=== PATIENT | female | born 1940 | race Hispanic/Latino ===

== ENCOUNTER 2017-09-14 18:28 | Emergency (ER) | payer OTHER ==
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
[2017-09-14 19:57] VITALS: TEMP 98.7
[2017-09-14 19:58] VITALS: BP 133/74; O2SAT 99
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
== END 2017-09-14 19:53 | disposition home or self-care (01) ==
LOC: ER 18:28
DX: M25.551 Pain in right hip (principal); M25.511 Pain in right shoulder; V49.59XA Passenger injured in collision with other motor vehicles in traffic accident, initial encounter; I10 Essential (primary) hypertension
CPT/HCPCS: 72125; 99284

== ENCOUNTER 2018-07-30 02:27 | Emergency (ER) | payer OTHER ==
[2018-07-30 04:01] LABS: Absolute Lymphocytes (CBC) 1.4 K/uL (0.7-4.9); Absolute Monocytes 0.6 K/uL (0.1-1.3); Absolute Neutrophil 7.3 K/uL (1.8-8.0); Basophils % 0.5 % (0-1.3); Eosinophils % 1.6 % (0-4.4); Hematocrit 37.8 % (36.0-45.0); Lymphocytes % 14.9 % (15.3-44.8); MPV 9.3 fL (7.6-11.3); Monocytes % 6.2 % (3.3-12.3); RBC Red Blood Cell Count 4.54 M/uL (3.86-4.86)
[2018-07-30] MEDS ORDERED: NA CHLORIDE 0.9% 1,000 ML ONE (04:13)
[2018-07-30 04:18] LABS: Bilirubin Direct 0.1 mg/dL (0-0.2); Bilirubin Total 0.3 mg/dL (0.2-1.0); Potassium 4.2 mmol/L (3.5-5.1); Protein, Total 7.4 g/dL (6.4-8.2)
--- NOTE | 2018-07-30 04:46 | EDPHYS ---
Physician Documentation [facility] Name: Nanda Nagy Age: 77 yrs Sex: Female : 1940 Arrival Date: 07/30/2018 Time: 02:30 Bed 14 Private MD: Paul Redmond E ED Physician Sirdhar Maria HPI: 07/30 02:47 This 77 yrs old Female presents to ER via Wheelchair with complaints of Hip mariam Pain. 02:47 The patient or guardian reports decreased range of motion. that occurred at home, at an mariam unknown site, sustained from unknown reason, There is no obvious deformity, The patient is able to ambulate with assistance. The patient is able to bear their full body weight. The complaints affect the right iliac crest and right hip. The complaints affect the left low back and left mid back. Onset: The symptoms/episode began/occurred just prior to arrival, 3 day(s) ago. Modifying factors: The symptoms are alleviated by remaining still, the symptoms are aggravated by any movement. Associated signs and symptoms: Loss of consciousness: the patient experienced no loss of consciousness. Severity of symptoms: At their worst the symptoms were mild, moderate, in the emergency department the symptoms are unchanged. The patient has not experienced similar symptoms in the past. Historical: - Allergies: 02:31 No Known Allergies; jb4 - Home Meds: 02:31 amlodipine/Valsartan/Hydrochlorothiazide [Active]; Meclizine Oral [Active]; Synthroid jb4 Oral [Active]; pravastatin oral oral [Active]; - PMHx: 02:31 High Cholesterol; Hypertension; Hypothyroidism; jb4 - PSHx: 02:31 None; jb4 - Immunization history:: Adult Immunizations up to date. - Social history:: Smoking status: Patient/guardian denies using tobacco, Patient/guardian denies using alcohol. - Ebola Screening: : No symptoms or risks identified at this time. - Family history:: not pertinent. ROS: 02:47 Constitutional: Negative for fever, chills, and weight loss, Eyes: Negative for injury, mariam pain, redness, and discharge, ENT: Negative for injury, pain, and discharge, Neck: Negative for injury, pain, and swelling, Cardiovascular: Negative for chest pain, palpitations, and edema, Respiratory: Negative for shortness of breath, cough, wheezing, and pleuritic chest pain, Abdomen/GI: Negative for abdominal pain, nausea, vomiting, diarrhea, and constipation, : Negative for injury, bleeding, discharge, and swelling, Skin: Negative for injury, rash, and discoloration, Neuro: Negative for headache, weakness, numbness, tingling, and seizure, Psych: Negative for depression, anxiety, suicide ideation, homicidal ideation, and hallucinations, Allergy/Immunology: Negative for hives, rash, and allergies, Endocrine: Negative for neck swelling, polydipsia, polyuria, polyphagia, and marked weight changes, Hematologic/Lymphatic: Negative for swollen nodes, abnormal bleeding, and unusual bruising. 02:47 Back: Positive for decreased range of motion, pain with movement. 02:47 MS/extremity: Positive for decreased range of motion, pain, warmth, of the left lower back. Exam: 02:47 Constitutional: This is a well developed, well nourished patient who is awake, alert, mariam and in no acute distress. Head/Face: Normocephalic, atraumatic. Eyes: Pupils equal round and reactive to light, extra-ocular motions intact. Lids and lashes normal. Conjunctiva and sclera are non-icteric and not injected. Cornea within normal limits. Periorbital areas with no swelling, redness, or edema. ENT: Nares patent. No nasal discharge, no septal abnormalities noted. Tympanic membranes are normal and external auditory canals are clear. Oropharynx with no redness, swelling, or masses, exudates, or evidence of obstruction, uvula midline. Mucous membranes moist. Neck: Trachea midline, no thyromegaly or masses palpated, and no cervical lymphadenopathy. Supple, full range of motion without nuchal rigidity, or vertebral point tenderness. No Meningismus. Chest/axilla: Normal chest wall appearance and motion. Nontender with no deformity. No lesions are appreciated. Cardiovascular: Regular rate and rhythm with a normal S1 and S2. No gallops, murmurs, or rubs. Normal PMI, no JVD. No pulse deficits. Respiratory: Lungs have equal breath sounds bilaterally, clear to auscultation and percussion. No rales, rhonchi or wheezes noted. No increased work of breathing, no retractions or nasal flaring. Abdomen/GI: Soft, non-tender, with normal bowel sounds. No distension or tympany. No guarding or rebound. No evidence of tenderness throughout. Female : Normal external genitalia. Skin: Warm, dry with normal turgor. Normal color with no rashes, no lesions, and no evidence of cellulitis. MS/ Extremity: Pulses equal, no cyanosis. Neurovascular intact. Full, normal range of motion. Neuro: Awake and alert, GCS 15, oriented to person, place, time, and situation. Cranial nerves II-XII grossly intact. Motor strength 5/5 in all extremities. Sensory grossly intact. Cerebellar exam normal. Normal gait. Psych: Awake, alert, with orientation to person, place and time. Behavior, mood, and affect are within normal limits. 02:47 Back: pain, that is mild, that is moderate, ROM is painful, normal spinal alignment noted, CVA tenderness, is absent, that is mild, vertebral tenderness, is not appreciated, muscle spasm, is not present. Vital Signs: 02:31 BP 159 / 77; Pulse 70; Resp 18; Temp 98.3(O); Pulse Ox 97% on R/A; Weight 81.65 kg (R); jb4 Height 5 ft. 0 in. (152.40 cm) (R); Pain 8/10; 04:00 BP 151 / 66; Pulse 64; Resp 16; Pulse Ox 98% on R/A; jb4 05:15 BP 149 / 63; Pulse 61; Resp 16; Pulse Ox 99% on R/A; jb4 02:31 Body Mass Index 35.15 (81.65 kg, 152.40 cm) [facility] MDM: 02:39 Patient medically screened. [facility] 02:51 Data reviewed: vital signs, nurses notes, lab test result(s), EKG, radiologic studies, [facility] CT scan, doppler, MRI, plain films. 07/30 02:47 Order name: Basic Metabolic Panel; Complete Time: 04:43 [facility] 07/30 02:47 Order name: CBC with Diff; Complete Time: 04:43 [facility] 07/30 02:47 Order name: Creatinine for Radiology; Complete Time: 04:43 [facility] 07/30 02:47 Order name: Hepatic Function; Complete Time: 04:43 [facility] 07/30 02:47 Order name: Lipase; Complete Time: 04:43 [facility] 07/30 02:47 Order name: Urine Culture [facility] 07/30 02:47 Order name: Pelvis XRAY [facility] 07/30 02:47 Order name: Hip Right 2 View XRAY [facility] 07/30 02:47 Order name: CT Stone Protocol [facility] 07/30 05:00 Order name: Urine Dipstick--Ancillary (enter results) ar5 07/30 05:01 Order name: Urine Dipstick-Ancillary EDMS 07/30 02:47 Order name: IV Saline Lock; Complete Time: 04:07 [facility] 07/30 02:47 Order name: Labs collected and sent; Complete Time: 04:07 [facility] Administered Medications: 04:06 Not Given (Patient Refused): morphine 2 mg IVP once jb4 04:06 Not Given (Patient Refused): morphine 2 mg IVP once jb4 04:06 Not Given (Physician Discretion): Zofran 4 mg IVP once; over 2 minutes jb4 04:07 Drug: NS 0.9% 500 ml Route: IV; Rate: bolus; Site: right antecubital; jb4 04:30 Follow up: Response: No adverse reaction; IV Status: Completed infusion jb4 04:30 Drug: NS 0.9% 1000 ml Route: IV; Rate: 125 ml/hr; Site: right antecubital; jb4 05:28 Follow up: Response: No adverse reaction; IV Status: Order to discontinue infusion jb4 05:02 Drug: [place] (7.5 mg-325 mg) 1 tabs Route: PO; jb4 05:28 Follow up: Response: No adverse reaction; Pain is decreased jb4 05:02 Drug: Cipro 500 mg Route: PO; jb4 05:29 Follow up: Response: No adverse reaction jb4 05:08 Drug: Zofran 4 mg Route: IVP; Site: right antecubital; jb4 05:29 Follow up: Response: No adverse reaction; Nausea is decreased jb4 05:10 Drug: TORadol 30 mg Route: IVP; Site: right antecubital; jb4 05:28 Follow up: Response: No adverse reaction; Pain is decreased jb4 05:11 Drug: Rocephin - (cefTRIAXone) 1 grams {Note: Given IVP per pharmacy protocol.} Route: jb4 IVPB; Infused Over: 30 mins; Site: right antecubital; 05:14 Follow up: Response: No adverse reaction; IV Status: Completed infusion jb4 Disposition: 07/30/18 04:44 Discharged to Home. Impression: Pain in right hip, Urinary tract infection, site not specified. - Condition is Stable. - Discharge Instructions: Musculoskeletal Pain, Urinary Tract Infection, Adult, Urinary Tract Infection, Adult, [id number], Hip Pain. - Prescriptions for Tylenol- Codeine #3 300-30 mg Oral Tablet - take 2 tablet by ORAL route every 6 hours As needed; 30 tablet. Motrin IB 200 mg Oral Tablet - take 2 tablet by ORAL route every 6 hours As needed as needed with food; 30 tablet. Cipro 250 mg Oral Tablet - take 1 tablet by ORAL route every 12 hours; 14 tablet. - Medication Reconciliation Form, Thank You Letter, Antibiotic Education, Prescription Opioid Use form. - Follow up: Paul Redmond; When: 2 - 3 days; Reason: Recheck today's complaints, Continuance of care, Re-evaluation by your physician. - Problem is new. - Symptoms have improved. Signatures: Dispatcher [employer] EDSridhar Solares MD MD cha Bryson, James, RN RN jb4 Corrections: (The following items were deleted from the chart) 05:03 04:44 07/30/2018 04:44 Discharged to Home. Impression: Pain in right hip. Condition is mariam Stable. Discharge Instructions: Musculoskeletal Pain, Hip Pain. Prescriptions for Tylenol-Codeine #3 300-30 mg Oral Tablet - take 2 tablet by ORAL route every 6 hours As needed; 30 tablet, Motrin IB 200 mg Oral Tablet - take 2 tablet by ORAL route every 6 hours As needed as needed with food; 30 tablet. and Forms are Medication Reconciliation Form, Thank You Letter, Antibiotic Education, Prescription Opioid Use. Follow up: Paul Redmond; When: 2 - 3 days; Reason: Recheck today's complaints, Continuance of care, Re-evaluation by your physician. Problem is new. Symptoms have improved. mariam 05:31 05:03 07/30/2018 04:44 Discharged to Home. Impression: Pain in right hip; Urinary tract jb4 infection, site not specified. Condition is Stable. Discharge Instructions: Musculoskeletal Pain, Hip Pain. Prescriptions for Tylenol-Codeine #3 300-30 mg Oral Tablet - take 2 tablet by ORAL route every 6 hours As needed; 30 tablet, Motrin IB 200 mg Oral Tablet - take 2 tablet by ORAL route every 6 hours As needed as needed with food; 30 tablet. and Forms are Medication Reconciliation Form, Thank You Letter, Antibiotic Education, Prescription Opioid Use. Follow up: Paul Redmond; When: 2 - 3 days; Reason: Recheck today's complaints, Continuance of care, Re-evaluation by your physician. Problem is new. Symptoms have improved. mariam
--- NOTE | 2018-07-30 04:46 | ER ---
Nurse's Notes [facility] Name: Nanda Nagy Age: 77 yrs Sex: Female : 1940 Arrival Date: 07/30/2018 Time: 02:30 Bed 14 Private MD: Paul Redmond E Diagnosis: Pain in right hip;Urinary tract infection, site not specified Presentation: 07/30 02:31 Presenting complaint: Patient states: I have been having right hip pain for a few days, jb4 I came in tonight because I can't take it any more. Transition of care: patient was not received from another setting of care. Onset of symptoms was July 26, 2018. Risk Assessment: Do you want to hurt yourself or someone else? Patient reports no desire to harm self or others. Initial Sepsis Screen: Does the patient meet any 2 criteria? No. Patient's initial sepsis screen is negative. Does the patient have a suspected source of infection? No. Patient's initial sepsis screen is negative. Care prior to arrival: None. 02:31 Method Of Arrival: Wheelchair jb4 02:31 Acuity: JUDITH 4 jb4 Triage Assessment: 02:31 General: Appears in no apparent distress. uncomfortable, Behavior is calm, cooperative, jb4 appropriate for age. Pain: Complains of pain in right hip Pain radiates to right leg Pain currently is 8 out of 10 on a pain scale. Quality of pain is described as crampy. EENT: No signs and/or symptoms were reported regarding the EENT system. Neuro: Level of Consciousness is awake, alert, obeys commands, Oriented to person, place, time, situation. Cardiovascular: Patient's skin is warm and dry. Respiratory: Airway is patent Respiratory effort is even, unlabored, Respiratory pattern is regular, symmetrical. GI: No signs and/or symptoms were reported involving the gastrointestinal system. : No signs and/or symptoms were reported regarding the genitourinary system. Derm: Skin is intact, Skin is pink, warm \T\ dry. Musculoskeletal: Circulation, motion, and sensation intact. Range of motion: intact in right hip. Historical: - Allergies: 02: No Known Allergies; jb4 - Home Meds: 02:31 amlodipine/Valsartan/Hydrochlorothiazide [Active]; Meclizine Oral [Active]; Synthroid jb4 Oral [Active]; pravastatin oral oral [Active]; - PMHx: 02:31 High Cholesterol; Hypertension; Hypothyroidism; jb4 - PSHx: 02:31 None; jb4 - Immunization history:: Adult Immunizations up to date. - Social history:: Smoking status: Patient/guardian denies using tobacco, Patient/guardian denies using alcohol. - Ebola Screening: : No symptoms or risks identified at this time. - Family history:: not pertinent. Screenin:31 Abuse screen: Denies threats or abuse. Nutritional screening: No deficits noted. jb4 Tuberculosis screening: No symptoms or risk factors identified. Fall Risk None identified. Assessment: 02:31 General: see triage assessment. jb4 03:30 Reassessment: Patient appears in no apparent distress at this time. Patient and/or jb4 family updated on plan of care and expected duration. Pain level reassessed. Patient is alert, oriented x 3, equal unlabored respirations, skin warm/dry/pink. 04:30 Reassessment: Patient appears in no apparent distress at this time. Patient and/or jb4 family updated on plan of care and expected duration. Pain level reassessed. Patient is alert, oriented x 3, equal unlabored respirations, skin warm/dry/pink. 05:30 Reassessment: Patient appears in no apparent distress at this time. Patient and/or jb4 family updated on plan of care and expected duration. Pain level reassessed. Patient is alert, oriented x 3, equal unlabored respirations, skin warm/dry/pink. Vital Signs: 02:31 BP 159 / 77; Pulse 70; Resp 18; Temp 98.3(O); Pulse Ox 97% on R/A; Weight 81.65 kg (R); jb4 Height 5 ft. 0 in. (152.40 cm) (R); Pain 8/10; 04:00 BP 151 / 66; Pulse 64; Resp 16; Pulse Ox 98% on R/A; jb4 05:15 BP 149 / 63; Pulse 61; Resp 16; Pulse Ox 99% on R/A; jb4 02:31 Body Mass Index 35.15 (81.65 kg, 152.40 cm) jb4 ED Course: 02:30 Patient arrived in ED. es 02:30 Paul Redmond MD is Private Physician. es 02:31 Bautista Alfaro, RN is Primary Nurse. jb4 02:31 Arm band placed on left wrist. jb4 02:31 Patient has correct armband on for positive identification. Bed in low position. Call jb4 light in reach. Side rails up X 1. Pulse ox on. NIBP on. 02:39 Sridhar Maria MD is Attending Physician. mariam 02:42 Triage completed. jb4 03:25 X-ray completed. Patient tolerated procedure well. kw 03:25 Pelvis XRAY In Process Unspecified. EDMS 03:25 Hip Right 2 View XRAY In Process Unspecified. EDMS 03:30 Initial lab(s) drawn, by me, sent to lab. Inserted saline lock: 20 gauge in right jb4 antecubital area, using aseptic technique. Blood collected. 03:46 CT Stone Protocol In Process Unspecified. EDMS 04:44 Paul Redmond MD is Referral Physician. mariam 05:15 No provider procedures requiring assistance completed. IV discontinued, intact, jb4 bleeding controlled. Administered Medications: 04:06 Not Given (Patient Refused): morphine 2 mg IVP once jb4 04:06 Not Given (Patient Refused): morphine 2 mg IVP once jb4 04:06 Not Given (Physician Discretion): Zofran 4 mg IVP once; over 2 minutes jb4 04:07 Drug: NS 0.9% 500 ml Route: IV; Rate: bolus; Site: right antecubital; jb4 04:30 Follow up: Response: No adverse reaction; IV Status: Completed infusion jb4 04:30 Drug: NS 0.9% 1000 ml Route: IV; Rate: 125 ml/hr; Site: right antecubital; jb4 05:28 Follow up: Response: No adverse reaction; IV Status: Order to discontinue infusion jb4 05:02 Drug: [place] (7.5 mg-325 mg) 1 tabs Route: PO; jb4 05:28 Follow up: Response: No adverse reaction; Pain is decreased jb4 05:02 Drug: Cipro 500 mg Route: PO; jb4 05:29 Follow up: Response: No adverse reaction jb4 05:08 Drug: Zofran 4 mg Route: IVP; Site: right antecubital; jb4 05:29 Follow up: Response: No adverse reaction; Nausea is decreased jb4 05:10 Drug: TORadol 30 mg Route: IVP; Site: right antecubital; jb4 05:28 Follow up: Response: No adverse reaction; Pain is decreased jb4 05:11 Drug: Rocephin - (cefTRIAXone) 1 grams {Note: Given IVP per pharmacy protocol.} Route: jb4 IVPB; Infused Over: 30 mins; Site: right antecubital; 05:14 Follow up: Response: No adverse reaction; IV Status: Completed infusion jb4 Outcome: 04:44 Discharge ordered by MD. becerra 05:30 Discharged to home via wheelchair, with family. jb4 05:30 Condition: stable 05:30 Discharge instructions given to patient, family, Instructed on discharge instructions, follow up and referral plans. medication usage, Demonstrated understanding of instructions, follow-up care, medications, Prescriptions given X 3. 05:31 Patient left the ED. jb4 Signatures: Dispatcher [employer] Sridhar Interiano MD MD cha Salyer, Raven Odell James, RN RN jb4
[2018-07-30] MEDS ORDERED: KETOROLAC 30 MG/ML INJ ONE (05:02)
[2018-07-30] MEDS ORDERED: HYDROCODONE/APAP 7.5/325 MG TAB ONE (05:02)
[2018-07-30] MEDS ORDERED: ONDANSETRON 4 MG/2 ML VIAL ONE (05:02)
[2018-07-30 05:03] LABS: Urine Blood TRACE (NEG); Urine Glucose NEGATIVE (NEG); Urine Protein NEGATIVE (NEG); Urine Specific Gravity 1.015 (1.005-1.030); Urine pH 6.5 (5.0-7.0)
[2018-07-30] MEDS ORDERED: CEFTRIAXONE/SWI 1gm 1 GM/10 ML SYR ONE (05:15)
[2018-07-30] MEDS ORDERED: CIPROFLOXACIN HCL 500 MG TAB ONE (05:15)
[2018-07-30 05:45] VITALS: TEMP 98.3
[2018-07-30 05:47] VITALS: BP 149/63; O2SAT 99
--- NOTE | 2018-07-30 08:29 | RAD REPORT ---
EXAM DESCRIPTION: RAD - Pelvis - 07/30/2018 3:31 am CLINICAL HISTORY: Right-sided pelvic and hip pain COMPARISON: October 2012 pelvis TECHNIQUE: AP imaging of the pelvis was obtained. FINDINGS: Lower lumbar degenerative changes are present. These have progressed from 2013 but are not fully imaged on this examination. SI joint degenerative changes minimal and stable. No fracture or acute findings of the bony pelvis. Mild bilateral hip joint degenerative changes are present showing low progression over time. No joint effusion or periarticular abnormality. No AVN or focal femoral head abnormality seen. IMPRESSION: Minimal degenerative change along the superior aspect of each acetabulum showing minimal progression from 2013. No AVN or focal femoral head abnormality. No acute hip joint or proximal right femur finding. Progressive lower lumbar degenerative change not fully imaged on this study.
--- NOTE | 2018-07-30 08:51 | RAD REPORT ---
EXAM DESCRIPTION: RAD - Hip Right 2 View - 07/30/2018 3:29 am CLINICAL HISTORY: Right hip pain COMPARISON: August 2017 FINDINGS: AP and frog-leg views of the right hip were obtained. There is no fracture or dislocation . No AVN or focal femoral head abnormality. No significant degenerative change, joint effusion or pe riarticular abnormality. IMPRESSION: Negative right hip examination for acute findings. No significant change from August 2017 .
--- NOTE | 2018-07-31 16:32 | RAD REPORT ---
EXAM DESCRIPTION: CT - Stone Protocol - 07/30/2018 4:13 am CLINICAL HISTORY: 77-year old female with flank pain. COMPARISON: None. TECHNIQUE: The CT scan was performed using dose optimization techniques as appropriate to a performe d exam including one or more of the following: Automated exposure control, adjustment of the mA and/o r kV according to patient size (this includes techniques or standardized protocols for targeted exams where dose is matched to indication/reason for exam) and use of iterative reconstruction technique. FINDINGS: Lung bases: The lung bases are grossly clear. Liver: The liver is normal in size and configuration. There is a sharply circumscribed low density ma ss arising from the lateral segment of the left hepatic lobe measuring approximately 1.7 cm most cons istent with a simple hepatic cyst. Liver attenuation is within normal limits. Spleen: The spleen is normal in size, configuration and attenuation. No focal splenic abnormalities a re appreciated on this unenhanced scan. Gallbladder and bile duct: The gallbladder is well distended and unremarkable. There is no biliary du ctal dilation. Pancreas: The pancreas is grossly normal in size and configuration. Adrenal Glands: The adrenal glands ar normal in size and configuration. Kidneys: The kidneys are normal in size and configuration. There is no evidence of hydronephrosis. Th ere is nonobstructing punctate bilateral nephrolithiasis. There are a couple of bilateral renal hypod ensities likely representing renal cysts. There is mild stranding of the perinephric fat bilaterally which is nonspecific but can be seen with chronic medical renal disease. Stomach: The stomach is grossly normal. There is a small hiatal hernia. Bowel: The bowel gas pattern is non specific and non obstructive. There is occasional colonic diverti culosis. Appendix: The appendix is normal. Free air: There is no evidence of free air. Free fluid: There is no evidence of free fluid. Vasculature: The aorta is normal in caliber and contour. The inferior vena cava is grossly unremarkab le. There is atherosclerotic calcifications along the abdominal aorta. Lymphadenopathy: No pathologic lymphadenopathy is identified. Bladder: The bladder is incompletely distended. Reproductive: The uterus is retroverted and is otherwise unremarkable. Bones: There are degenerative changes along the visualized thoracolumbar spine. There is grade 1 ante rolisthesis of L4 relative to L5. Bilateral pars defects at L4 are suspected. Soft tissues: No focal soft tissue abnormalities are identified. There is a small fat-containing vent ral umbilical hernia. IMPRESSION: 1. Bilateral nonobstructing nephrolithiasis. 2. Bilateral renal hypodensities likely representing cysts. Evaluation is limited without IV contrast . 3. Small left hepatic lobe cyst. 4. Small hiatal hernia. 5. Retroverted uterus. 6. Grade 1 anterolisthesis of L4 relative to L5. Electronically signed by Holli Muniz DO 07/30/2018 4:01 AM [employer] Due to temporary technical issues with the PACS/Fluency reporting system, reports are being signed by the in house radiologist as a courtesy to ensure prompt reporting. The interpreting radiologist is f ully responsible for the content of the report.
== END 2018-07-30 05:31 | disposition home or self-care (01) ==
LOC: ER 02:27
DX: N39.0 Urinary tract infection, site not specified (principal); I10 Essential (primary) hypertension; E03.9 Hypothyroidism, unspecified; E78.00 Pure hypercholesterolemia, unspecified
CPT/HCPCS: 36415; 72170; 73502; 74176; 76377; 80048; 80076; 81003; 83690; 85025; 87086; 87088; 96361; 96374; 96375; 99284; J0696; J2405; J7030

== ENCOUNTER 2019-02-03 22:02 | Emergency (ER) | payer OTHER ==
[2019-02-03] MEDS ORDERED: CEFTRIAXONE 1000 MG/VIAL ONE (23:46)
[2019-02-03] MEDS ORDERED: WATER FOR INJ,STERILE 10 ML ONE (23:47)
--- NOTE | 2019-02-03 23:59 | EDPHYS ---
Physician Documentation [facility] Name: Nanda Nagy Age: 78 yrs Sex: Female : 1940 Arrival Date: 02/03/2019 Time: 22:05 Bed 5 Private MD: ED Physician Richard Pfeiffer HPI: 02/03 23:18 This 78 yrs old Female presents to ER via Wheelchair with complaints of Right pm1 Flank Pain. 23:19 The patient complains of pain in the right low back. Location: right groin area. Onset: pm1 The symptoms/episode began/occurred today. Modifying factors: The symptoms are alleviated by nothing. the symptoms are aggravated by nothing. Associated signs and symptoms: Pertinent negatives: diarrhea, dysuria, fever, nausea, vomiting. Severity of pain: in the emergency department the pain is actually worse. The patient has experienced similar episodes in the past, a few times, today's symptoms are similar, to previous UTI. The patient has been recently seen by a physician: [facility] and diagnosed with unspecified abdominal pain. Labs and CT of abdomen pelvis performed. Patient discharged home with tramadol. Tramadol appears to help her pain. stopped here for reevaluation of patient's pain because it returned on the way home. Patient reports that she usually has flank pain with urinary tract infections. Historical: - Allergies: 22:29 No Known Allergies; ea - Home Meds: 22:29 Synthroid Oral [Active]; pravastatin Oral [Active]; Meclizine Oral [Active]; ea amlodipine/Valsartan/Hydrochlorothiazide [Active]; - PMHx: 22:29 Hypothyroidism; hyperthyroidism; Hypertension; High Cholesterol; ea - PSHx: 22:29 None; ea - Immunization history:: Adult Immunizations up to date. - Social history:: Smoking status: Patient/guardian denies using tobacco. - Ebola Screening: : No symptoms or risks identified at this time. ROS: 23:19 Constitutional: Negative for fever, chills, and weight loss, Eyes: Negative for injury, pm1 pain, redness, and discharge, ENT: Negative for injury, pain, and discharge, Neck: Negative for injury, pain, and swelling, Cardiovascular: Negative for chest pain, palpitations, and edema, Respiratory: Negative for shortness of breath, cough, wheezing, and pleuritic chest pain, Abdomen/GI: Negative for abdominal pain, nausea, vomiting, diarrhea, and constipation. 23:19 : Negative for injury, bleeding, discharge, and swelling, MS/Extremity: Negative for injury and deformity, Skin: Negative for injury, rash, and discoloration, Neuro: Negative for headache, weakness, numbness, tingling, and seizure. 23:19 Back: Positive for flank pain, on the right. Exam: 23:19 Constitutional: This is a well developed, well nourished patient who is awake, alert, pm1 and in no acute distress. Head/Face: Normocephalic, atraumatic. Eyes: Pupils equal round and reactive to light, extra-ocular motions intact. Lids and lashes normal. Conjunctiva and sclera are non-icteric and not injected. Cornea within normal limits. Periorbital areas with no swelling, redness, or edema. ENT: Nares patent. No nasal discharge, no septal abnormalities noted. Tympanic membranes are normal and external auditory canals are clear. Oropharynx with no redness, swelling, or masses, exudates, or evidence of obstruction, uvula midline. Mucous membranes moist. Neck: Trachea midline, no thyromegaly or masses palpated, and no cervical lymphadenopathy. Supple, full range of motion without nuchal rigidity, or vertebral point tenderness. No Meningismus. Chest/axilla: Normal chest wall appearance and motion. Nontender with no deformity. No lesions are appreciated. Cardiovascular: Regular rate and rhythm with a normal S1 and S2. No gallops, murmurs, or rubs. Normal PMI, no JVD. No pulse deficits. Respiratory: Lungs have equal breath sounds bilaterally, clear to auscultation and percussion. No rales, rhonchi or wheezes noted. No increased work of breathing, no retractions or nasal flaring. Abdomen/GI: Soft, non-tender, with normal bowel sounds. No distension or tympany. No guarding or rebound. No evidence of tenderness throughout. 23:19 Skin: Warm, dry with normal turgor. Normal color with no rashes, no lesions, and no evidence of cellulitis. MS/ Extremity: Pulses equal, no cyanosis. Neurovascular intact. Full, normal range of motion. 23:19 Back: pain, that is mild, of the right low back, normal spinal alignment noted, vertebral tenderness, is not appreciated. 23:19 Neuro: Orientation: is normal, Motor: is normal, moves all fours, strength is 5/5 in all extremities, Sensation: is normal, no obvious gross deficits. Vital Signs: 22:21 BP 144 / 70; Pulse 71; Resp 18; Temp 97.6(O); Pulse Ox 96% on R/A; Pain 8/10; oe 23:29 BP 133 / 66; Pulse 62; Resp 14; Pulse Ox 95% on R/A; ak1 02/04 00:05 BP 131 / 62; Pulse 59; Resp 14; Temp 98; Pulse Ox 95% on R/A; ak1 MDM: 02/03 22:45 Patient medically screened. pm1 23:01 Physician consultation: ER MD Lopez was called at 23:01, was contacted at 23:01, pm1 regarding patient's condition, Patient presents to ER here without any CT results. CT result: No acute findings. 23:01 ED course: Patient with recent ER visit at [facility]. Patient pm1 with no change in presentation of symptoms from [facility]. No apparent need for repeat CT and labs. Based on recommendation from Dr. Lopez, will give the patient Rocephin and discharge home with antibiotics for possible UTI. 23:19 Data reviewed: vital signs. Data interpreted: Pulse oximetry: on room air is 96 %. pm1 Interpretation: normal. 23:57 Counseling: I had a detailed discussion with the patient and/or guardian regarding: the pm1 historical points, exam findings, and any diagnostic results supporting the discharge/admit diagnosis, the need for outpatient follow up, to return to the emergency department if symptoms worsen or persist or if there are any questions or concerns that arise at home. 02/03 23:58 Order name: Urine Microscopic Only pm1 02/03 23:58 Order name: Urine Dipstick-Ancillary (obtain specimen); Complete Time: 00:35 pm1 Administered Medications: 02/04 00:02 Drug: Rocephin (cefTRIAXone) 1 grams Route: IM; Site: right gluteus; rr5 00:28 Follow up: Response: Medication administered at discharge. rr5 Disposition: 10:50 Co-signature as Attending Physician, Richard Pfeiffer MD I agree with the assessment and tw4 plan of care. Disposition: 02/03/19 23:58 Discharged to Home. Impression: Urinary tract infection, site not specified. - Condition is Stable. - Discharge Instructions: Urinary Tract Infection, Adult. - Prescriptions for Bactrim DS 800- 160 mg Oral Tablet - take 1 tablet by ORAL route every 12 hours for 10 days; 20 tablet. - Medication Reconciliation Form, Thank You Letter, Antibiotic Education, Prescription Opioid Use form. - Follow up: Emergency Department; When: As needed; Reason: Worsening of condition. Follow up: Private Physician; When: 2 - 3 days; Reason: Recheck today's complaints, Continuance of care, Re-evaluation by your physician. - Problem is new. - Symptoms have improved. Signatures: Dispatcher [employer] EDMS Theodore Cervantes, MEDICAL TECHNICIAN MEDICAL TECHNICIAN pm1 Shana Lanza, RN Richard Bowens ea, MD MD tw4 Ketan Andrade RN RN rr5 Corrections: (The following items were deleted from the chart) 00:29 02/03 23:58 02/03/2019 23:58 Discharged to Home. Impression: Urinary tract infection, rr5 site not specified. Condition is Stable. Forms are Medication Reconciliation Form, Thank You Letter, Antibiotic Education, Prescription Opioid Use. Follow up: Emergency Department; When: As needed; Reason: Worsening of condition. Follow up: Private Physician; When: 2 - 3 days; Reason: Recheck today's complaints, Continuance of care, Re-evaluation by your physician. Problem is new. Symptoms have improved. pm1
--- NOTE | 2019-02-03 23:59 | ER ---
Nurse's Notes [facility] Name: Nanda Nagy Age: 78 yrs Sex: Female : 1940 Arrival Date: 02/03/2019 Time: 22:05 Bed 5 Private MD: Diagnosis: Urinary tract infection, site not specified Presentation: 02/03 22:25 Presenting complaint: Patient states: Pt reports she woke up suddenly with pain to ea right side of hip that travels up her lower back around 6 PM. Denies fall. Transition of care: patient was not received from another setting of care. Onset of symptoms was February 03, 2019. Risk Assessment: Do you want to hurt yourself or someone else? Patient reports no desire to harm self or others. Initial Sepsis Screen: Does the patient meet any 2 criteria? No. Patient's initial sepsis screen is negative. Does the patient have a suspected source of infection? No. Patient's initial sepsis screen is negative. Care prior to arrival: None. 22:25 Method Of Arrival: Wheelchair ea 22:25 Acuity: JUDITH 4 ea Triage Assessment: 22:29 General: Appears uncomfortable, Behavior is calm, cooperative, appropriate for age. ea Pain: Complains of pain in right lower back Pain radiates to right mid back and right low back. Neuro: Level of Consciousness is awake, alert, obeys commands, Oriented to person, place, time, situation. Cardiovascular: Patient's skin is warm and dry. Respiratory: Airway is patent Respiratory effort is even, unlabored, Respiratory pattern is regular, symmetrical. Derm: Skin is pink, warm \T\ dry. Historical: - Allergies: 22:29 No Known Allergies; ea - Home Meds: 22:29 Synthroid Oral [Active]; pravastatin Oral [Active]; Meclizine Oral [Active]; ea amlodipine/Valsartan/Hydrochlorothiazide [Active]; - PMHx: 22:29 Hypothyroidism; hyperthyroidism; Hypertension; High Cholesterol; ea - PSHx: 22:29 None; ea - Immunization history:: Adult Immunizations up to date. - Social history:: Smoking status: Patient/guardian denies using tobacco. - Ebola Screening: : No symptoms or risks identified at this time. Screenin: Abuse screen: Denies threats or abuse. Denies injuries from another. Nutritional rr5 screening: No deficits noted. Tuberculosis screening: No symptoms or risk factors identified. Fall Risk None identified. Total Clements Fall Scale indicates No Risk (0-24 pts). 22:28 Abuse screen: Denies threats or abuse. Nutritional screening: No deficits noted. ea Tuberculosis screening: No symptoms or risk factors identified. Fall Risk None identified. Assessment: 22:28 General: Appears in no apparent distress. uncomfortable, Behavior is calm, cooperative, rr5 appropriate for age. Pain: Complains of pain in right flank Pain does not radiate. Pain currently is 8 out of 10 on a pain scale. Quality of pain is described as aching, Pain began gradually, Is intermittent. Neuro: Level of Consciousness is awake, alert, obeys commands, Oriented to person, place, time, situation, Appropriate for age. Cardiovascular: Capillary refill < 3 seconds Patient's skin is warm and dry. Respiratory: Airway is patent Respiratory effort is even, unlabored, Respiratory pattern is regular, symmetrical. GI: No signs and/or symptoms were reported involving the gastrointestinal system. : Reports pain in right flank(s), Denies burning with urination, pain with urination. EENT: No signs and/or symptoms were reported regarding the EENT system. Derm: Skin is intact, Skin temperature is warm. Musculoskeletal: Circulation, motion, and sensation intact. Capillary refill < 3 seconds. 23:10 Reassessment: awaiting for [facility] to fax the radiology and laboratory rr5 records of the patient. patient signed the consent to access her medical records in [facility]. 02/04 00:06 Reassessment: pt asked to provide a urian sample, pt requested a bedside commode. pt ak1 assisted to bedside commode to try and provide sample. 00:28 Reassessment: Patient appears in no apparent distress at this time. Patient is alert, rr5 oriented x 3, equal unlabored respirations, skin warm/dry/pink. discharge instruction given and explained without complaints made. Patient states feeling better. Patient states symptoms have improved. Vital Signs: 02/03 22:21 BP 144 / 70; Pulse 71; Resp 18; Temp 97.6(O); Pulse Ox 96% on R/A; Pain 8/10; oe 23:29 BP 133 / 66; Pulse 62; Resp 14; Pulse Ox 95% on R/A; ak1 02/04 00:05 BP 131 / 62; Pulse 59; Resp 14; Temp 98; Pulse Ox 95% on R/A; ak1 ED Course: 02/03 22:05 Patient arrived in ED. ds1 22:19 Ketan Andrade, BLAYNE is Primary Nurse. rr5 22:22 Theodore Cervantes NP is PHCP. pm1 22:22 Richard Pfeiffer MD is Attending Physician. pm1 22:28 Triage completed. ea 22:28 Patient has correct armband on for positive identification. Bed in low position. Call rr5 light in reach. Side rails up X2. Pulse ox on. NIBP on. 22:29 Arm band placed on right wrist. Patient placed in an exam room, on a stretcher, on ea pulse oximetry. 23:46 No provider procedures requiring assistance completed. ak1 02/04 00:05 Patient did not have IV access during this emergency room visit. ak1 Administered Medications: 00:02 Drug: Rocephin (cefTRIAXone) 1 grams Route: IM; Site: right gluteus; rr5 00:28 Follow up: Response: Medication administered at discharge. rr5 Outcome: 02/03 23:58 Discharge ordered by . pm1 02/04 00:28 Discharged to home via wheelchair, with family. rr5 Condition: stable Discharge instructions given to patient, family, Instructed on discharge instructions, follow up and referral plans. medication usage, Demonstrated understanding of instructions, follow-up care, medications, Prescriptions given X 1. 00:29 Patient left the ED. rr5 Signatures: Emma Hensley ds1 Carolee Faustin RN RN ak1 Theodore Cervantes, ERIKA CATERING SERVER pm1 Danis Saleh Elena, RN RN Ketan Andrade, RN RN rr5
[2019-02-04 00:37] LABS: Urine Bacteria 20-50 /HPF (<20); Urine Culture Reflex Order REFLEXED; Urine RBC <5 /HPF (NONE SEEN)
[2019-02-04 01:49] VITALS: O2SAT 95
[2019-02-04 01:51] VITALS: BP 131/62; TEMP 98
== END 2019-02-04 00:29 | disposition home or self-care (01) ==
LOC: ER 22:02
DX: N39.0 Urinary tract infection, site not specified (principal); I10 Essential (primary) hypertension; E78.00 Pure hypercholesterolemia, unspecified; E07.9 Disorder of thyroid, unspecified
CPT/HCPCS: 81015; 87077; 87086; 87088; 87186; 96372; 99283

== ENCOUNTER 2022-10-21 13:33 | Emergency (ER) | payer OTHER ==
--- NOTE | 2022-10-21 14:04 | RAD REPORT ---
EXAM DESCRIPTION: CT - CTHCSPWOC - 10/21/2022 1:51 pm CLINICAL HISTORY: Trauma, head and neck injury. PAIN COMPARISON: C Spine Wo Con dated 09/14/2017 TECHNIQUE: Axial 5 mm thick images of the head were obtained. Axial 2 mm thick images of the cervical spine were obtained with sagittal and coronal reconstruction images generated and reviewed. All CT scans are performed using dose optimization technique as appropriate and may include automated exposure control or mA/KV adjustment according to patient size. FINDINGS: CT HEAD WITHOUT CONTRAST: No acute hemorrhage, hydrocephalus or extra-axial collection is identified.No areas of brain edema or midline shift. The paranasal sinuses and mastoids are clear.The calvarium is intact. CT CERVICAL SPINE WITHOUT CONTRAST: No fracture or subluxation.No prevertebral soft tissues swelling is identified. Multilevel degenerati ve changes are present in the spine. Varying degrees of neural foraminal narrowing noted. This is adv anced at C3-4, C4-5, and C5-6. IMPRESSION: No acute intracranial or cervical spine findings.
--- NOTE | 2022-10-21 14:05 | RAD REPORT ---
EXAM DESCRIPTION: CT - CTFB CLINICAL HISTORY: FACIAL PAIN COMPARISON: Head C Spine Mpr Wo Con dated 10/21/2022 TECHNIQUE: Axial 2 mm thick images of the face were obtained with sagittal and coronal reconstructio n images. All CT scans are performed using dose optimization technique as appropriate and may include automated exposure control or mA/KV adjustment according to patient size. FINDINGS: No acute facial bone fracture is seen.The mandible is intact. The globes and orbital contents are grossly unremarkable.The paranasal sinuses and mastoids are clear . IMPRESSION: Negative for facial bone fracture.
--- NOTE | 2022-10-21 14:38 | ER ---
Nurse's Notes [facility] Name: Nanda Nagy Age: 82 yrs Sex: Female : 1940 Arrival Date: 10/21/2022 Time: 13:33 Bed 2 Private MD: Diagnosis: Contusion of eyelid and periocular area Presentation: 10/21 13:36 Chief complaint: EMS states: Cardboard sign fell from top shelf and hit her in the hb face. Small superficial laceration noted to bridge of nose, right periorbital swelling and bruising noted. Negative LOC. Coronavirus screen: At this time, the client does not indicate any symptoms associated with coronavirus-19. Ebola Screen: No symptoms or risks identified at this time. Initial Sepsis Screen: Does the patient meet any 2 criteria? No. Patient's initial sepsis screen is negative. Does the patient have a suspected source of infection? No. Patient's initial sepsis screen is negative. Risk Assessment: Do you want to hurt yourself or someone else? Patient reports no desire to harm self or others. Onset of symptoms was October 21, 2022. 13:36 Method Of Arrival: EMS: [facility] 13:36 Acuity: JUDITH 3 hb Historical: - Allergies: 13:38 No Known Allergies; hb - Home Meds: 13:38 amlodipine/Valsartan/Hydrochlorothiazide [Active]; Synthroid Oral [Active]; Meclizine hb Oral [Active]; pravastatin Oral [Active]; - PMHx: 13:38 High Cholesterol; Hypertension; hyperthyroidism; Hypothyroidism; hb - Immunization history:: Adult Immunizations up to date. - Social history:: Smoking status: Patient denies any tobacco usage or history of. Screenin:30 [facility] ED Fall Risk Assessment (Adult) Score/Fall Risk Level 0 - 2 = Low Risk hb Oriented to surroundings, Maintained a safe environment, Educated pt \T\ family on fall prevention, incl call for assistance when getting out of bed. 13:30 Abuse screen: Denies threats or abuse. Denies injuries from another. Nutritional hb screening: No deficits noted. Tuberculosis screening: No symptoms or risk factors identified. Assessment: 13:40 General: Appears in no apparent distress. Behavior is cooperative, anxious. Pain: Pain hb currently is 6 out of 10 on a pain scale. Neuro: Level of Consciousness is awake, alert, obeys commands, Oriented to person, place, time, situation. Cardiovascular: Patient's skin is warm and dry. Respiratory: Respiratory effort is even, unlabored, Respiratory pattern is regular, symmetrical. GI: No signs and/or symptoms were reported involving the gastrointestinal system. : No signs and/or symptoms were reported regarding the genitourinary system. EENT: right periorbital swelling and bruising, small superficial laceration noted to bridge of nose. Derm: Skin is pink, warm \T\ dry. Musculoskeletal: No signs and/or symptoms reported regarding the musculoskeletal system. 14:30 Reassessment: Patient appears in no apparent distress at this time. No changes from hb previously documented assessment. Patient and/or family updated on plan of care and expected duration. Pain level reassessed. Vital Signs: 13:36 BP 198 / 83; Pulse 63; Resp 16; Temp 97.9; Pulse Ox 98% on R/A; Weight 86.18 kg; Height hb 5 ft. 3 in. ; Pain 6/10; 14:56 BP 156 / 86; Pulse 62; Resp 15; Pulse Ox 99% on R/A; hb 13:36 Body Mass Index 33.66 (86.18 kg, 160.02 cm) hb 13:36 Pain Scale: Adult hb ED Course: 13:30 Patient has correct armband on for positive identification. hb 13:34 Patient arrived in ED. iw 13:36 Bert Luis MD is Attending Physician. bs3 13:38 Triage completed. hb 13:44 Arm band placed on. hb 13:53 CT Head C Spine In Process Unspecified. EDMS 13:53 CT Facial Bones W/O Con In Process Unspecified. EDMS 14:57 No provider procedures requiring assistance completed. Patient did not have IV access hb during this emergency room visit. Administered Medications: No medications were administered Medication: 14:56 VIS not applicable for this client. hb Outcome: 14:37 Discharge ordered by . bs3 14:57 Discharged to home via wheelchair, with significant other. hb 14:57 Condition: stable 14:57 Discharge instructions given to patient, significant other, Instructed on discharge instructions, follow up and referral plans. Demonstrated understanding of instructions, follow-up care. 14:57 Patient left the ED. hb Signatures: Dispatcher [employer] EDMS Kalpana Quiñones RN RN Sapna Hamilton, RN RN Bert Chaudhry MD MD bs3
--- NOTE | 2022-10-21 14:38 | EDPHYS ---
Physician Documentation [facility] Name: Nanda Nagy Age: 82 yrs Sex: Female : 1940 Arrival Date: 10/21/2022 Time: 13:33 Bed 2 Private MD: ED Physician Bert Luis HPI: 10/21 13:37 This 82 yrs old Female presents to ER via Unassigned with complaints of Facial bs3 Injury. 13:37 The patient or guardian reports abrasion, injury. Context of injury: The problem was bs3 sustained hit with a cardboard board. Onset: The symptoms/episode began/occurred suddenly, just prior to arrival. Associated signs and symptoms: The patient has no apparent associated signs or symptoms. 82-year-old female history of hypertension, injections in her eye presents with an abrasion to her nose and bruising to her right orbit she was shopping and was hit by a cardboard object just prior to arrival denies LOC denies any other injuries complains of mild pain given eyes no blurry vision nothing else bothering her. Historical: - Allergies: 13:38 No Known Allergies; hb - Home Meds: 13:38 amlodipine/Valsartan/Hydrochlorothiazide [Active]; Synthroid Oral [Active]; Meclizine hb Oral [Active]; pravastatin Oral [Active]; - PMHx: 13:38 High Cholesterol; Hypertension; hyperthyroidism; Hypothyroidism; hb - Immunization history:: Adult Immunizations up to date. - Social history:: Smoking status: Patient denies any tobacco usage or history of. ROS: 13:40 Constitutional: Negative for fever, chills bs3 13:40 All other systems are negative. Exam: 13:40 Constitutional: This is a well developed, well nourished patient who is awake, alert, bs3 and in no acute distress. Head/Face: right periorbital ecchymosis, and mild tenderness Eyes: Pupils equal round and reactive to light, extra-ocular motions intact. Lids and lashes normal. slight conjunctival injections, no pain with EOM ENT: mmm, no posterior phyarngeal erythema, superficial abrasion at bridge of nose Neck: mild tenderness in posterior c spine midline also paraspinal tenderness Chest/axilla: Normal chest wall appearance and motion. Nontender with no deformity. No lesions are appreciated. Cardiovascular: Regular rate and rhythm with a normal S1 and S2. symmetric pulses in upper extremities Respiratory: Lungs have equal breath sounds bilaterally, clear to auscultation, no respiratory distress MS/ Extremity: Pulses equal, no cyanosis. Neurovascular intact. Full, normal range of motion. Neuro: Awake and alert, GCS 15, oriented to person, place, time, and situation. Cranial nerves II-XII grossly intact. Motor strength 5/5 in all extremities. Sensory grossly intact. Psych: Awake, alert, with orientation to person, place and time. Behavior, mood, and affect are within normal limits. Vital Signs: 13:36 BP 198 / 83; Pulse 63; Resp 16; Temp 97.9; Pulse Ox 98% on R/A; Weight 86.18 kg; Height hb 5 ft. 3 in. ; Pain 6/10; 14:56 BP 156 / 86; Pulse 62; Resp 15; Pulse Ox 99% on R/A; hb 13:36 Body Mass Index 33.66 (86.18 kg, 160.02 cm) hb 13:36 Pain Scale: Adult hb MDM: 13:36 Patient medically screened. bs3 14:34 Differential diagnosis: Contusion of Hematoma on Laceration of Intracranial bleed- bs3 Concussion. Data reviewed: vital signs, nurses notes. ED course: No hemorrhage as interpreted by myself on ct brain . ED course: officail read neg for acute pathology, lac too small to close, will dc home. 10/21 13:40 Order name: CT Head C Spine; Complete Time: 14:34 bs3 10/21 13:40 Order name: CT Facial Bones W/O Con; Complete Time: 14:34 bs3 Administered Medications: No medications were administered Disposition Summary: 10/21/22 14:37 Discharge Ordered Location: Home bs3 Problem: new bs3 Symptoms: have improved bs3 Condition: Stable bs3 Diagnosis - Contusion of eyelid and periocular area bs3 Followup: bs3 - With: Private Physician - When: As needed - Reason: Re-evaluation by your physician Discharge Instructions: - Discharge Summary Sheet bs3 - Facial or Scalp Contusion, [id number] bs3 Forms: - Medication Reconciliation Form bs3 - Thank You Letter bs3 - Antibiotic Education bs3 - Prescription Opioid Use bs3 Signatures: Dispatcher [employer] EDTX Sapna Baumann RN RN Bert Luis MD MD bs3 Corrections: (The following items were deleted from the chart) 13:42 13:40 Constitutional: This is a well developed, well nourished patient who is awake, bs3 alert, and in no acute distress. Head/Face: right periorbital ecchymosis, and mild tenderness Eyes: Pupils equal round and reactive to light, extra-ocular motions intact. Lids and lashes normal. ENT: mmm, no posterior phyarngeal erythema Neck: mild tenderness in posterior c spine midline also paraspinal tenderness Chest/axilla: Normal chest wall appearance and motion. Nontender with no deformity. No lesions are appreciated. Cardiovascular: Regular rate and rhythm with a normal S1 and S2. symmetric pulses in upper extremities Respiratory: Lungs have equal breath sounds bilaterally, clear to auscultation, no respiratory distress MS/ Extremity: Pulses equal, no cyanosis. Neurovascular intact. Full, normal range of motion. Neuro: Awake and alert, GCS 15, oriented to person, place, time, and situation. Cranial nerves II-XII grossly intact. Motor strength 5/5 in all extremities. Sensory grossly intact. Psych: Awake, alert, with orientation to person, place and time. Behavior, mood, and affect are within normal limits. bs3
[2022-10-21] MEDS ORDERED: IBUPROFEN 200 MG TAB PO ONE (14:54)
[2022-10-21 15:01] VITALS: TEMP 97.9
[2022-10-21 15:02] VITALS: BP 156/86; O2SAT 99
== END 2022-10-21 14:57 | disposition home or self-care (01) ==
LOC: ER 13:33
DX: S00.11XA Contusion of right eyelid and periocular area, initial encounter (principal); I10 Essential (primary) hypertension; E78.00 Pure hypercholesterolemia, unspecified; E03.9 Hypothyroidism, unspecified
CPT/HCPCS: 70450; 70486; 72125; 76377; 99283

== ENCOUNTER 2022-12-14 19:47 | Emergency (ER) | payer OTHER ==
--- OUTSIDE RECORDS SUMMARY | 2022-12-14 19:50 | XMS REPORT | Continuity of Care Document ---
:1940 Author Organization [facility] t Address [address] [facility] [place] [place] [address] [place] [id number] Care Team Providers Name Role Phone Unavailable Unavailable Unavailable Problems This patient has no known problems. Allergies, Adverse Reactions, Alerts This patient has no known allergies or adverse reactions. Medications This patient has no known medications. Procedures This patient has no known procedures. Encounters Start End Encounter Admission Attending Care Care Encounter Source Date/Time Date/Time Type Type Clinicians Facility Department ID 2022-11-23 2022-11-23 Outpatient [facility] [id number] [place] 14:17:28 14:17:28 [id number] Chauncey 2022-11-09 2022-11-09 Outpatient [facility] [id number] [place] 17:03:43 17:03:43 0524 Chauncey Results Test Description Test Time Test Comments Results Result Comments Source VITAMIN D, 25 OH 2022-11-24 10:13:08 Test Item Value Reference Range Interpretation Comme nts VITAMIN D, 25 OH (test 21 NG/ML SEE BELOW L E FFECTIVE 06/27/2022, PLEASE NOTE code = 4958) NEW METHODOLOGY IS ELECTROCHEMILUM INESCENCE BINDING ASSAY. NOTE: 25-HYDROX YVITAMIN D ASSAY INCLUDES 25-HYDROXYVITAM IN D2 AND D3. INTERPRETIVE RA NGES PEDIATRIC (<17 YEARS) . . . . . . . . . . . NG/ML 20-100ADULT: IN SUFFICIENT . . . . . . . . . . . . . . N G/ML <20 SUBOPTIMAL . . . . . . . . . . . . . . . NG/ML 20-29 OPTIMAL . . . . . . . . . . . . . . . . . NG/ML 30-100 UNLESS OTHERWISE INDICATED, ALL TESTING PERFORMED AT [facility] [employer] [address] [place] [id number] [employer] SUPERVISOR: DYLAN FRANKLIN M.D. CLIA NUMBER [id number] [place]. [id number] TSH, THIRD [id number] 10:12:44 Test Item Value Reference Range Interpretation Comments TSH, THIRD GENERATION (test code 0.800 UIU/ML 0.400-4.100 = 2821) TROPONIN [id number] 09:41:44 Test Item Value Reference Range Interpretation Comments TROPONIN T (test 8 NG/L <14 INTERPRETI VE code = 4017) INFORMATION:MET HODOLOGY IS 5TH GENERATION HIGH SENSITIVITY CARDIAC TROPONI N.REFERENCE INTERVALS GIVEN ABOVE ARE BELOW THE 99TH PERCENTILE OFAPPARENTLY HE ALTHY ADULT PATIENTS. ELEVA TIONS OF CARDIAC TROPONI N TMAY BE SEEN IN PATIENTS WIT H MYOCARDIAL INJURY, SEEN IN STABLE ORUNSTABLE PASCUAL NA, HEART FAILURE, MYOCAR DITIS, PULMONARY EMBOLISM,PERICA RDITIS, ARRHYTHMIAS, CA RDIAC CONTUSIONS, AND CARDIAC TRANSPLANTSELEV ATIONS ARE ALSO NOTABLE IN FLEX ENTS WITH RHABDOMYOLYSIS ANDPOLYMYOSITIS . FOR MORE INFORMATION, SE E CLIENT ANNOUNCEMENT AT [email or web address] COMPREHENSIVE METABOLIC [id number] 07:00:37 Test Item Value Reference Range Interpretation Comments GLUCOSE (test code = 88 MG/DL 70-99 2216) BUN (test code = 27 MG/DL 8-23 H 2207) CREATININE (test 1.05 MG/DL 0.60-1.30 code = 2214) eGFR (2020 CKD-EPI) 53 ML/MIN/1.73 >60 L The N KF-ASN (test code = 30998) Taskforc e recommends use of Cystatin C to confirm eGFR inadults at ris k for CKD. [facility] offers eGFR with Cystatin C-Creatinineusi ng the 2020 CKD-EP I eGFR_creat-cyst at equation (order code 3057) toincreas e the accuracy of estimated GFR. For more informatio n, contactyour acc ount executive or se e announcement [email or web address] CALC BUN/CREAT (test 26 RATIO 6-28 code = 2235) SODIUM (test code = 143 MEQ/L [phone]) POTASSIUM (test code 4.5 MEQ/L 3.5-5.4 = 2227) CHLORIDE (test code 104 MEQ/L 95-107 = 2214) CARBON DIOXIDE (test 29 MEQ/L 19-31 code = 220) CALCIUM (test code = 9.5 MG/DL 8.5-10.5 2208) PROTEIN, TOTAL (test 6.7 G/DL 6.1-8.3 code = 222) ALBUMIN (test code = 4.6 G/DL 3.5-5.2 2200) CALC GLOBULIN (test 2.1 G/DL 1.9-3.7 code = 224) CALC A/G RATIO (test 2.2 RATIO 1.0-2.6 code = 223) BILIRUBIN, TOTAL <0.2 MG/DL See_Comment [Automated message] (test code = 220) The syste m which generated this result transmit [place] reference range : <=1.2. The refe rence range was not u sed to interpret th is result as normal/abnormal . ALKALINE PHOSPHATASE 80 U/L 40-142 (test code = 2203) AST (test code = 14 U/L 9-40 2217) ALT (test code = 12 U/L 5-40 2218) LIPID [id number] 07:00:37 Test Item Value Reference Range Interpretation Comments CHOLESTEROL (test 180 MG/DL <200 code = 2210) TRIGLYCERIDES (test 237 MG/DL <150 H code = 2232) HDL CHOLESTEROL (test 52 MG/DL >39 code = 2220) CALC LDL CHOL (test 95 MG/DL <100 NOTE: C ALCULATED LDL code = 2237) IS BASED ON MIRELLA-BE METHOD WHICHINCLUDES ADJUSTABLE TRIGLYCERIDE:VL DL CHOLESTEROL RAT IO.THIS FACTOR VARIES B Y MEASURED TRIGLY CERIDE AND NON-HDLCHOL ESTEROL CONCENTRATIONS WITH INCREASED CALCU LATED LDL SEENIN HIGH ER TRIGLYCERIDE OR LOWER NON-HDL SPECIME NS. FOR MOREINFORMATION , SEE CLIENT ANNOUNCE MENT AT [email or web address] [email or web address] LDL/HDL 1.83 RATIO <3.22 (test code = 223) CBC W/AUTO DIFF WITH [id number] 03:12:45 Test Item Value Reference Range Interpretation Comments WBC (test code = 7.1 K/UL 3.5-11.0 1001) RBC (test code = 4.48 M/UL 3.80-5.40 1002) HEMOGLOBIN (test code 12.4 G/DL 11.5-15.5 = 1003) HEMATOCRIT (test code 37.3 % 34.0-45.0 = 1004) MCV (test code = 83.3 fL 80.0-99.0 1005) MCH (test code = 27.7 PG 25.0-33.0 1006) MCHC (test code = 33.2 G/DL 31.0-36.0 1007) RDW (test code = 13.9 % 11.5-15.0 1038) NEUTROPHILS (test 67.4 % code = 1008) LYMPHOCYTES (test 21.8 % code = 1010) MONOCYTES (test code 6.9 % = 1011) EOSINOPHILS (test 3.0 % code = 1012) BASOPHILS (test code 0.8 % = 1013) IMMATURE GRANULOCYTES 0.1 % (test code = 1036) NUCLEATED RBCS (test 0.0 /100 WBC'S See_Comment [Aut omated code = 1065) message] The sy stem which generated this result transmitted reference range : 0.0. The refere nce range was not u sed to interpret th is result as normal/abnormal . PLATELET COUNT (test 225 K/UL 130-400 code = 1015) ABSOLUTE NEUTROPHILS 4.79 K/UL 1.50-7.50 (test code = 1066) ABSOLUTE LYMPHOCYTES 1.55 K/UL 1.00-4.00 (test code = 1067) ABSOLUTE MONOCYTES 0.49 K/UL 0.20-1.00 (test code = 1068) ABSOLUTE EOSINOPHILS 0.21 K/UL 0.00-0.50 (test code = 1040) ABSOLUTE BASOPHILS 0.06 K/UL 0.00-0.20 (test code = 1069) ABS IMMATURE 0.01 K/UL 0.00-0.10 GRANULOCYTES (test code = 1020) ABS NUCLEATED RBCS 0.00 K/UL 0.00-0.11 (test code = 88090)
--- NOTE | 2022-12-14 20:46 | RAD REPORT ---
EXAM DESCRIPTION: RAD - Wrist Right 3 View - 12/14/2022 8:18 pm CLINICAL HISTORY: PAIN Pain COMPARISON: No comparisons FINDINGS: Mild radiocarpal joint arthritic changes. No acute fracture or dislocation evident. No agg ressive bone lesion.
[2022-12-14] MEDS ORDERED: TRAMADOL HCL 50 MG TAB ONE (21:06)
[2022-12-14] MEDS ORDERED: ACETAMINOPHEN 325 MG TABLET ONE (21:07)
[2022-12-14] MEDS ORDERED: IBUPROFEN 400 MG TAB ONE (21:07)
--- NOTE | 2022-12-14 21:25 | EDPHYS ---
Physician Documentation [facility] Name: Nanda Nagy Age: 82 yrs Sex: Female : 1940 Arrival Date: 12/14/2022 Time: 19:47 Bed 9 Private MD: ED Physician Tiburcio August HPI: 12/14 20:15 This 82 yrs old Female presents to ER via Ambulatory with complaints of Wrist cp Injury. 20:15 The patient or guardian reports pain, tenderness. Context: resulted from a fall. Onset: cp The symptoms/episode began/occurred several months ago and became worse after catching falling object while at store several weeks ago. Modifying factors: the symptoms are aggravated by movement, palpation. Associated signs and symptoms: The patient has no apparent associated signs or symptoms. Historical: - Allergies: 20:01 No Known Allergies; as6 - PMHx: 20:01 High Cholesterol; Hypertension; hyperthyroidism; Hypothyroidism; as6 - PSHx: 20:01 None; as6 - Immunization history:: Client reports receiving the 2nd dose of the Covid vaccine, moderna. - Social history:: Smoking status: Patient denies any tobacco usage or history of. ROS: 20:20 Constitutional: Negative for body aches, chills, fever, poor PO intake. cp 20:20 Neck: Negative for pain with movement, pain at rest, stiffness. cp 20:20 Cardiovascular: Negative for chest pain. 20:20 Respiratory: Negative for cough, shortness of breath, wheezing. 20:20 Abdomen/GI: Negative for abdominal pain, vomiting, diarrhea, constipation. 20:20 Back: Negative for pain at rest, pain with movement. 20:20 MS/extremity: Positive for pain, tenderness, of the right wrist. 20:20 Skin: Negative for cellulitis, rash. 20:20 Neuro: Negative for dizziness, headache, numbness, weakness. 20:20 All other systems are negative. Exam: 20:25 Constitutional: The patient appears in no acute distress, alert, awake, non-toxic, well cp developed, well nourished. 20:25 Hand exam: Exam is positive for pain, tenderness, radial side of wrist over styloid and cp proximal to snuff box area . ROM: limited passive range of motion due to pain, in the right wrist, Perfusion: the extremity is normally perfused throughout, sensation intact. 20:25 Skin: cellulitis, is not appreciated, no rash present. 20:25 Head/Face: Normocephalic, atraumatic. 20:25 Neck: ROM/movement: is normal, is supple, without pain, no range of motions limitations. 20:25 Cardiovascular: Pulses: Pulses are 2+ in right radial artery. 20:25 Respiratory: the patient does not display signs of respiratory distress, Respirations: normal, no use of accessory muscles, no retractions, labored breathing, is not present. Vital Signs: 19:58 BP 170 / 66; Pulse 80; Resp 18 S; Temp 97.9(TE); Pulse Ox 97% on R/A; Weight 81.65 kg as6 (R); Height 5 ft. 0 in. (R); Pain 7/10; 21:30 BP 155 / 74; Pulse 74; Resp 18; Pulse Ox 100% on R/A; mb9 19:58 Body Mass Index 35.15 (81.65 kg, 152.4 cm) as6 19:58 Pain Scale: Adult as6 Procedures: 21:33 Splinting: Splint applied to right wrist using wrist splint, applied by nurse. Examined cp by me, post splint application: neurovascular intact, Patient tolerated well. MDM: 20:07 Patient medically screened. cp 20:45 Differential diagnosis: dislocation, closed fracture, contusion, tendonitis. cp 21:25 Data reviewed: vital signs, nurses notes, radiologic studies, plain films. cp 21:25 I considered the following discharge prescriptions or medication management in the emergency department Medications were administered in the Emergency Department. See MAR. Counseling: I had a detailed discussion with the patient and/or guardian regarding: the historical points, exam findings, and any diagnostic results supporting the discharge/admit diagnosis, radiology results, the need for outpatient follow up, a hand specialist, to return to the emergency department if symptoms worsen or persist or if there are any questions or concerns that arise at home. Response to treatment: the patient's symptoms have mildly improved after treatment, and as a result, I will discharge patient. 12/14 20:03 Order name: XRAY Wrist RIGHT 3 view; Complete Time: 21:07 as6 12/14 21:07 Interpretation: Report reviewed. 12/14 21:07 Order name: Splint - Wrist; Complete Time: 21:12 cp Administered Medications: 21:01 Drug: Ibuprofen PO 800 mg Route: PO; mb9 21:12 Follow up: Response: No adverse reaction mb9 21:01 Drug: Acetaminophen PO 650 mg Route: PO; mb9 21:12 Follow up: Response: No adverse reaction mb9 21:01 Drug: traMADol PO 50 mg Route: PO; mb9 21:09 Follow up: Response: No adverse reaction mb9 Disposition Summary: 12/14/22 21:25 Discharge Ordered Location: Home cp Problem: new cp Symptoms: have improved cp Condition: Stable cp Diagnosis - Pain in right wrist cp Followup: cp - With: Clint Mauro MD - When: 1 week - Reason: Recheck today's complaints Discharge Instructions: - Discharge Summary Sheet cp - Wrist Pain, Adult cp Forms: - Medication Reconciliation Form cp - Thank You Letter cp - Antibiotic Education cp - Prescription Opioid Use cp - MedHost_Portal_[email or web address].htm cp Prescriptions: - Mobic 7.5 mg Oral Tablet - take 1 tablet by ORAL route once daily take with food; 20 tablet; Refills: 0, cp Product Selection Permitted Signatures: Dispatcher [employer] EDSridhar Tavera PA PA cp Slawson, Ashby RN RN as6 Kassandra Ahn RN RN mb9
--- NOTE | 2022-12-14 21:25 | ER ---
Nurse's Notes [facility] Name: Nanda Nagy Age: 82 yrs Sex: Female : 1940 Arrival Date: 12/14/2022 Time: 19:47 Bed 9 Private MD: Diagnosis: Pain in right wrist Presentation: 12/14 19:58 Chief complaint: Patient states: pt had a fall several months ago and caught herself as6 with her out reached hand and has had pain in her right wrist ever since. Coronavirus screen: At this time, the client does not indicate any symptoms associated with coronavirus-19. Ebola Screen: No symptoms or risks identified at this time. Initial Sepsis Screen: Does the patient meet any 2 criteria? No. Patient's initial sepsis screen is negative. Does the patient have a suspected source of infection? No. Patient's initial sepsis screen is negative. Risk Assessment: Do you want to hurt yourself or someone else? Patient reports no desire to harm self or others. Onset of symptoms is unknown. 19:58 Method Of Arrival: Ambulatory as6 19:58 Acuity: JUDITH 4 as6 Triage Assessment: 20:01 General: Appears in no apparent distress. Behavior is calm, cooperative. Pain: as6 Complains of pain in right wrist. Musculoskeletal: Reports pain in right wrist. Historical: - Allergies: 20:01 No Known Allergies; as6 - PMHx: 20:01 High Cholesterol; Hypertension; hyperthyroidism; Hypothyroidism; as6 - PSHx: 20:01 None; as6 - Immunization history:: Client reports receiving the 2nd dose of the Covid vaccine, moderna. - Social history:: Smoking status: Patient denies any tobacco usage or history of. Screenin:28 [facility] ED Fall Risk Assessment (Adult) History of falling in the last 3 months, mb9 including since admission No falls in past 3 months (0 pts) Confusion or Disorientation No (0 pts) Intoxicated or Sedated No (0 pts) Impaired Gait No (0 pts) Mobility Assist Device Used No (0 pt) Altered Elimination No (0 pt) Score/Fall Risk Level 0 - 2 = Low Risk Oriented to surroundings, Maintained a safe environment, Educated pt \T\ family on fall prevention, incl call for assistance when getting out of bed. Abuse screen: Denies threats or abuse. Nutritional screening: No deficits noted. Tuberculosis screening: No symptoms or risk factors identified. Assessment: 20:28 Reassessment: No changes from previously documented assessment. Patient and/or family mb9 updated on plan of care and expected duration. Pain level reassessed. Patient is alert, oriented x 3, equal unlabored respirations, skin warm/dry/pink. Vital Signs: 19:58 BP 170 / 66; Pulse 80; Resp 18 S; Temp 97.9(TE); Pulse Ox 97% on R/A; Weight 81.65 kg as6 (R); Height 5 ft. 0 in. (R); Pain 7/10; 21:30 BP 155 / 74; Pulse 74; Resp 18; Pulse Ox 100% on R/A; mb9 19:58 Body Mass Index 35.15 (81.65 kg, 152.4 cm) as6 19:58 Pain Scale: Adult as6 ED Course: 19:53 Patient arrived in ED. ja2 20:01 Triage completed. as6 20:02 Arm band placed on. as6 20:04 Sridhar Wei PA is PHCP. cp 20:04 Tiburcio August MD is Attending Physician. cp 20:20 XRAY Wrist RIGHT 3 view In Process Unspecified. EDMS 20:28 Kassandra Ahn, BLAYNE is Primary Nurse. mb9 20:28 Bed in low position. Call light in reach. Side rails up X 1. Client placed on mb9 continuous cardiac and pulse oximetry monitoring. NIBP monitoring applied. 20:29 No provider procedures requiring assistance completed. mb9 21:24 Clint Mauro MD is Referral Physician. cp 21:30 Patient did not have IV access during this emergency room visit. mb9 Administered Medications: 21:01 Drug: Ibuprofen PO 800 mg Route: PO; mb9 21:12 Follow up: Response: No adverse reaction mb9 21:01 Drug: Acetaminophen PO 650 mg Route: PO; mb9 21:12 Follow up: Response: No adverse reaction mb9 21:01 Drug: traMADol PO 50 mg Route: PO; mb9 21:09 Follow up: Response: No adverse reaction mb9 Medication: 20:28 VIS not applicable for this client. mb9 Outcome: 21:25 Discharge ordered by . cp 21:30 Discharged to home ambulatory. mb9 21:30 Condition: stable 21:30 Discharge instructions given to patient, Instructed on discharge instructions, follow up and referral plans. Demonstrated understanding of instructions, follow-up care, medications, Prescriptions given X 1. 21:30 Patient left the ED. mb9 Signatures: Dispatcher [employer] EDMS Sridhar Wei PA PA cp Alexander, Jessica ja2 Slawson, Ashby, RN RN as6 Kassandra Ahn RN RN mb9
[2022-12-14 22:07] VITALS: TEMP 97.9
[2022-12-14 22:09] VITALS: BP 155/74; O2SAT 100
== END 2022-12-14 21:30 | disposition home or self-care (01) ==
LOC: ER 19:47
DX: M25.531 Pain in right wrist (principal)
CPT/HCPCS: 99283

== ENCOUNTER 2024-07-21 15:39 | Emergency (ER) | payer OTHER ==
--- OUTSIDE RECORDS SUMMARY | 2024-07-21 15:43 | XMS REPORT | Continuity of Care Document ---
Author Name Unknown Address [address] [facility] [address] [place] [id number] [facility] Address [address] [facility] 1 [address] [place] [address] Care Team Providers Care Drafter Landscape Name Role Phone Angeline Boswell Primary Care Physician [phone] Medications Ordered Medication Name Filled Medication Name Start Date Stop Date Current Medication? Ordering Clinician Indication Dosage Frequency Signature (SIG) Comments Components Source lidocaine 5 % topical cream 2023-06 0-03 00:00: 00 Yes 1% Cody Grossman simvastatin 40 mg tablet 2023-06 0-03 00:00: 00 Yes 1mg Cody Grossman amlodipine 5 mg tablet 2023-06 0-03 00:00: 00 Yes 1mg Cody Grossman valsartan 160 mg tablet 2023-06 0-03 00:00: 00 Yes 1mg Cody Grossman levothyroxi ne 100 mcg tablet 2023-06 0-03 00:00: 00 Yes 1mcg Cody Grossman gabapentin 300 mg capsule 2023-06 0-03 00:00: 00 Yes 1mg Cody Grossman mupirocin 2 % topical ointment -19 00:00: 00 Yes 1% Cody Grossman amlodipine 5 mg tablet 4-15 00:00: 00 Yes 1mg Cody Grossman simvastatin 40 mg tablet 4-15 00:00: 00 Yes 1mg Cody Grossman valsartan 160 mg tablet -15 00:00: 00 Yes 1mg Cody Grossman levothyroxi ne 100 mcg tablet 4-15 00:00: 00 Yes 1mcg Cody Grossman gabapentin 300 mg capsule 4-15 00:00: 00 Yes 1mg Cody Grossman TAKE 1 TABLET DAILY. 09-20 00:00: 00 Yes 100 Cody Grossman VALSARTAN 160 MG 09-20 00:00: 00 Yes Cody Grossman LEVOTHYROXI N 75MCG 2022-06 00:00: 00 Yes Cody Grossman TAKE 1 TABLET DAILY. 2022-06 00:00: 00 10-23 00:00 :00 No 100 Cody Grossman SIMVASTATIN 40MG 2022-06 0 00:00: 00 Yes Cody Grossman AMLODIPINE BESYLATE 5 MG 03-01 00:00: 00 Yes 5 Cody Grossman AMLODIPINE 5MG 02-18 00:00: 00 Yes Cody Grossman TAKE 1 TABLET DAILY. 02-18 00:00: 00 10-23 00:00 :00 No 40 Cody Grossman TAKE 1 TABLET DAILY. 01-04 00:00: 00 10-23 00:00 :00 No 75 Cody Grossman MELOXICAM 7.5MG 12-16 00:00: 00 Yes Cody Grossman TAKE 1 CAPSULE AT BEDTIME. 12-16 00:00: 00 10-23 00:00 :00 No 300 Cody Grossman INHALE 1 TO 2 PUFFS EVERY 6 HOURS NEEDED. 12-16 00:00: 00 10-23 00:00 :00 No [id number] Cody Grossman TAKE ONE TABLET TWICE A DAY NEEDED 12-16 00:00: 00 10-23 00:00 :00 No 5 Cody Grossman TAKE 1 TABLET BY MOUTH ONCE DAILY TAKE WITH FOOD 12-14 00:00: 00 Yes Cody Grossman TAKE 1 TABLET DAILY 11-23 00:00: 00 Yes Cody Grossman TAKE 1 TABLET EVERY MORNING. 11-23 00:00: 00 10-23 00:00 :00 No 5 Cody Grossman TAKE 1 TABLET DAILY. 11-23 00:00: 00 10-23 00:00 :00 No 40 Cody Grossman VALSARTAN 160MG 24 00:00: 00 Yes Cody Grossman TAKE 1 TABLET EVERY MORNING. 0 5 00:00: 00 10-23 00:00 :00 No 5 Cody Grossman SIMVASTATIN 40MG 2021-06 230 00:00: 00 Yes [id number] Cody Grossman ONDANSETRON 4MG ODT 2021-06 00:00: 00 Yes 4000 Cody Grossman MONTELUKAST 10MG 2021-06 00:00: 00 Yes [id number] Cody Grossman TAKE 3 TABLETS BY MOUTH TWICE A DAY DIRECTED ON THE PACKAGE 2021-06 00:00: 00 Yes Cody Grossman PULMICRT FLX 180MCG INH 2021-06 00:00: 00 Yes [id number] Cody Grossman FAMOTIDINE 20MG 2021-06 00:00: 00 Yes Cody Grossman AZITHROMYCI N 250MG 2021-06 00:00: 00 Yes [id number] Cody Grossman TAKE 1 TABLET BY MOUTH TWICE A DAY NEEDED FOR ANXIETY 02-16 00:00: 00 Yes Cody Grossman VALSARTAN 160MG 0 12-15 00:00: 00 Yes [id number] Cody Grossman AMLODIPINE 5MG 0 6 00:00: 00 Yes 5000 Cody Grossman Vital Signs Vital Name Observation Time Observation Value Comments S ource BP Systolic 2024-03-21 09:49:00 144 mm[Hg] Regan hen Josue Grossman BP Diastolic 2024-03-21 09:49:00 78 mm[Hg] Mynor phen Josue Grossman Weight Measured 2024-03-21 09:49:00 186.20 pounds Cody Grossman Height Measured 2024-03-21 09:49:00 67.00 inches Cody Grossman Body Temperature 2024-03-21 09:49:00 Cody Grossman Heart Rate 2024-03-21 09:49:00 67.00 /min Sharlene en Josue Grossman Respiratory Rate 2024-03-21 09:49:00 Cody Grossman BP Systolic 2024-01-05 18:23:00 Step hen Josue Grossman BP Diastolic 2024-01-05 18:23:00 Mynor phen F Chauncey Weight Measured 2024-01-05 18:23:00 Cody F Chauncey Height Measured 2024-01-05 18:23:00 Cody F Chauncey Body Temperature 2024-01-05 18:23:00 Cody F Chauncey Heart Rate 2024-01-05 18:23:00 Sharlene en F Chauncey Respiratory Rate 2024-01-05 18:23:00 Cody F Chauncey BP Systolic 2023-12-20 10:01:00 139 mm[Hg] Step hen F Chauncey BP Diastolic 2023-12-20 10:01:00 80 mm[Hg] Mynor phen F Chauncey Weight Measured 2023-12-20 10:01:00 188.40 pounds Cody F Chauncey Height Measured 2023-12-20 10:01:00 67.00 inches Cody F Chauncey Body Temperature 2023-12-20 10:01:00 98.20 degrees Cody F Chauncey Heart Rate 2023-12-20 10:01:00 70.00 /min Sharlene en F Chauncey Respiratory Rate 2023-12-20 10:01:00 17.00 /min Cody F Chauncey BP Systolic 2023-10-02 09:36:00 142 mm[Hg] Step hen F Chauncey BP Diastolic 2023-10-02 09:36:00 83 mm[Hg] Mynor phen F Chauncey Weight Measured 2023-10-02 09:36:00 186.00 pounds Cody F Chauncey Height Measured 2023-10-02 09:36:00 67.00 inches Cody F Chauncey Body Temperature 2023-10-02 09:36:00 98.10 degrees Cody F Chauncey Heart Rate 2023-10-02 09:36:00 75.00 /min Sharlene en F Chauncey Respiratory Rate 2023-10-02 09:36:00 19.00 /min Cody F Chauncey BP Systolic 2023-04-20 11:37:00 142 mm[Hg] Step hen F Chauncey BP Diastolic 2023-04-20 11:37:00 80 mm[Hg] Mynor phen F Chauncey Weight Measured 2023-04-20 11:37:00 184.60 pounds Cody F Chauncey Height Measured 2023-04-20 11:37:00 67.00 inches Cody F Chauncey Body Temperature 2023-04-20 11:37:00 98.40 degrees Cody F Chauncey Heart Rate 2023-04-20 11:37:00 87.00 /min Sharlene en F Chauncey Respiratory Rate 2023-04-20 11:37:00 17.00 /min Cody F Chauncey BP Systolic 2023-03-01 11:42:00 155 mm[Hg] Step hen F Chauncey BP Diastolic 2023-03-01 11:42:00 84 mm[Hg] Mynor phen F Chauncey Weight Measured 2023-03-01 11:42:00 185.60 pounds Cody F Chauncey Height Measured 2023-03-01 11:42:00 67.00 inches Cody F Chauncey Body Temperature 2023-03-01 11:42:00 98.30 degrees Cody F Chauncey Heart Rate 2023-03-01 11:42:00 67.00 /min Sharlene en F Chauncey Respiratory Rate 2023-03-01 11:42:00 16.00 /min Cody F Chauncey BP Systolic 2022-12-16 16:34:00 142 mm[Hg] Step hen F Chauncey BP Diastolic 2022-12-16 16:34:00 81 mm[Hg] Mynor phen F Chauncey Weight Measured 2022-12-16 16:34:00 190.60 pounds Cody F Chauncey Height Measured 2022-12-16 16:34:00 67.00 inches Cody F Chauncey Body Temperature 2022-12-16 16:34:00 97.80 degrees Cody F Chauncey Heart Rate 2022-12-16 16:34:00 78.00 /min Sharlene en F Chauncey Respiratory Rate 2022-12-16 16:34:00 Cody F Chauncey BP Systolic 2022-11-23 13:31:00 144 mm[Hg] Step hen F Chauncey BP Diastolic 2022-11-23 13:31:00 63 mm[Hg] Mynor phen F Chauncey Weight Measured 2022-11-23 13:31:00 188.40 pounds Cody F Chauncey Height Measured 2022-11-23 13:31:00 67.00 inches Cody F Chauncey Body Temperature 2022-11-23 13:31:00 97.80 degrees Cody F Chauncey Heart Rate 2022-11-23 13:31:00 85.00 /min Sharlene en F Chauncey Respiratory Rate 2022-11-23 13:31:00 18.00 /min Cody F Chauncey BP Systolic 2022-11-23 13:17:00 144 mm[Hg] Step hen F Chauncey BP Diastolic 2022-11-23 13:17:00 63 mm[Hg] Mynor phen F Chauncey Weight Measured 2022-11-23 13:17:00 188.40 pounds Cody Grossman Height Measured 2022-11-23 13:17:00 67.00 inches Cody Josue Grossman Body Temperature 2022-11-23 13:17:00 97.80 degrees Cody Josue Grossman Heart Rate 2022-11-23 13:17:00 85.00 /min Sharlene en F Chauncey Respiratory Rate 2022-11-23 13:17:00 18.00 /min Cody Josue Grossman BP Systolic 2022-11-09 17:34:00 179 mm[Hg] Step hen F Chauncey BP Diastolic 2022-11-09 17:34:00 83 mm[Hg] Mynor phen F Chauncey Weight Measured 2022-11-09 17:34:00 187.40 pounds Cody Grossman Height Measured 2022-11-09 17:34:00 67.00 inches Cody Grossman Body Temperature 2022-11-09 17:34:00 98.30 degrees Cody Josue Grossman Heart Rate 2022-11-09 17:34:00 77.00 /min Sharlene en F Chauncey Respiratory Rate 2022-11-09 17:34:00 18.00 /min Cody Grossman Encounters Start Date/Time End Date/Time Encounter Type Admission Type Attending [facility] Care Department Encounter ID Source 2024-03-21 09:44:23 2024-03-21 09:44:23 Outpatient [facility] [id number] Cody Grossman 2024-03-21 00:00:00 2024-03-21 00:00:00 Outpatient Visit [facility] [id number] Cody Grossman 2024-01-05 18:22:29 2024-01-05 18:22:29 Outpatient [facility] [id number] Cody Grossman 2024-01-05 00:00:00 2024-01-05 00:00:00 Outpatient Visit [facility] [id number] Cody Grossman 2023-12-20 09:48:24 2023-12-20 09:48:24 Outpatient [facility] [id number] Cody Grossman 2023-12-20 00:00:00 2023-12-20 00:00:00 Outpatient Visit [facility] [id number] Cody Grossman 2023-10-23 13:30:55 2023-10-23 13:30:55 Outpatient [facility] [id number] Cody Grossman 2023-10-10 12:58:45 2023-10-10 12:58:45 Outpatient [facility] [id number] Cody Grossman 2023-10-02 10:23:44 2023-10-02 10:23:44 Outpatient [facility] [id number] Cody Grossman 2023-04-20 14:11:05 2023-04-20 14:11:05 Outpatient [facility] [id number] Cody Salas Chauncey 2023-04-17 15:53:33 2023-04-17 15:53:33 Outpatient [facility] [id number] Cody Grossman 2023-03-01 11:35:10 2023-03-01 11:35:10 Outpatient [facility] [id number] Cody Salas Chauncey 2023-01-03 13:45:23 2023-01-03 13:45:23 Outpatient [facility] [id number] Cody Salas Chauncey 2022-12-23 15:10:20 2022-12-23 15:10:20 Outpatient [facility] [id number] Cody Salas Chauncey 2022-12-16 16:31:54 2022-12-16 16:31:54 Outpatient [facility] [id number] Cody Grossman 2022-11-23 14:17:28 2022-11-23 14:17:28 Outpatient [facility] 07 Cody Salas Chauncey 2022-11-09 17:03:43 2022-11-09 17:03:43 Outpatient [facility] [id number] Cody Grossman Results Test Description Test Time Test Comments Results Result Co mments Source TSH, THIRD [id number] 06:01:38* Test Item Value Reference Range Interpretation Comme nts TSH, THIRD GENERATION (test code = 2821) 4.120 UIU/ML 0.400-4.100 H COMPREHENSIVE METABOLIC [id number] 05:52:00* Test Item Value Reference Range Interpretation Comme nts GLUCOSE (test code = 2217) 153 MG/DL 70-99 H BUN (test code = 2208) 24 MG/DL 8-23 H CREATININE (test code = 2214) 1.08 MG/DL 0.60-1.30 eGFR (2020 CKD-EPI) (test code = 33643) 51 ML/MIN/1.73 >60 L The NKF-ASN Taskforce recommends use of Cystatin C to confirm eGFR inadults at risk for CKD. [facility] offers eGFR with Cystatin C-Creatinineusing the 2020 CKD-EPI eGFR_creat-cystat equation (order code 3057) toincrease the accuracy of estimated GFR. For more information, contactyour accounts officer or see announcement [email or web address] CALC BUN/CREAT (test code = 2234) 22 RATIO 6-28 SODIUM (test code = 223) 143 MEQ/L 133-146 POTASSIUM (test code = 2228) 4.3 MEQ/L 3.5-5.4 CHLORIDE (test code = 2215) 106 MEQ/L 95-107 CARBON DIOXIDE (test code = 2206) 24 MEQ/L 19-31 CALCIUM (test code = 2209) 9.3 MG/DL 8.5-10.5 PROTEIN, TOTAL (test code = 222) 6.6 G/DL 6.1-8.3 ALBUMIN (test code = 2200) 4.2 G/DL 3.5-5.2 CALC GLOBULIN (test code = 2240) 2.4 G/DL 1.9-3.7 CALC A/G RATIO (test code = 223) 1.8 RATIO 1.0-2.6 BILIRUBIN, TOTAL (test code = 2206) 0.3 MG/DL <=1.2 ALKALINE PHOSPHATASE (test code = 2204) 75 U/L 40-142 AST (test code = 2218) 17 U/L 9-40 ALT (test code = 2219) 12 U/L 5-40 LIPID [id number] 05:52:00* Test Item Value Reference Range Interpretation Comme nts CHOLESTEROL (test code = 2210) 257 MG/DL <200 H TRIGLYCERIDES (test code = 2232) 178 MG/DL <150 H HDL CHOLESTEROL (test code = 2220) 53 MG/DL >39 CALC LDL CHOL (test code = 2237) 171 MG/DL <100 H NOTE: CALCULATED LDL IS BASED ON MIRELLA-BE METHOD WHICHINCLUDES ADJUSTABLE TRIGLYCERIDE:VLDL CHOLESTEROL RATIO.THIS FACTOR VARIES BY MEASURED TRIGLYCERIDE AND NON-HDLCHOLESTEROL CONCENTRATIONS WITH INCREASED CALCULATED LDL SEENIN HIGHER TRIGLYCERIDE OR LOWER NON-HDL SPECIMENS. FOR MOREINFORMATION, SEE CLIENT ANNOUNCEMENT AT [email or web address] [email or web address] RATIO LDL/HDL (test code = 2238) 3.23 RATIO <3.22 H UNLESS OTHERW ISE INDICATED, ALL TESTING PERFORMED AT [facility] [address] [place] [address] LABORER BITUMINOUS PAVING: DON FRANKLIN M.D. CLIA NUMBER [id number] [facility] [place]. [id number] LIPID [id number] 05:16:00* Test Item Value Reference Range Interpretation Comme nts CHOLESTEROL (test code = 2210) 270 MG/DL <200 H TRIGLYCERIDES (test code = 2232) 210 MG/DL <150 H HDL CHOLESTEROL (test code = 2220) 62 MG/DL >39 CALC LDL CHOL (test code = 2237) 171 MG/DL <100 H NOTE: CALCULATED LDL IS BASED ON MIRELLA-BE METHOD WHICHINCLUDES ADJUSTABLE TRIGLYCERIDE:VLDL CHOLESTEROL RATIO.THIS FACTOR VARIES BY MEASURED TRIGLYCERIDE AND NON-HDLCHOLESTEROL CONCENTRATIONS WITH INCREASED CALCULATED LDL SEENIN HIGHER TRIGLYCERIDE OR LOWER NON-HDL SPECIMENS. FOR MOREINFORMATION, SEE CLIENT ANNOUNCEMENT AT [email or web address] RISK RATIO LDL/HDL (test code = 2238) 2.76 RATIO <3.22 UNLESS OTHERW ISE INDICATED, ALL TESTING PERFORMED AT [facility] [employer]. [address] [place] [address] LABORER BITUMINOUS PAVING: DON FRANKLIN M.D. CLIA NUMBER [id number] [facility] [place]. [id number] TSH, THIRD [id number] 05:13:01* Test Item Value Reference Range Interpretation Comme nts TSH, THIRD GENERATION (test code = 2821) 2.490 UIU/ML 0.400-4.100 TSH, THIRD [id number] 00:00:00* Test Item Value Reference Range Interpretation Comme nts TSH, THIRD GENERATION (test code = 2821) 2.490 UIU/ML Cody GrossmanLIPID [id number] 00:00:00* Test Item Value Reference Range Interpretation Comme nts CHOLESTEROL (test code = 2210) 270 MG/DL TRIGLYCERIDES (test code = 2232) 210 MG/DL HDL CHOLESTEROL (test code = 2220) 62 MG/DL CALC LDL CHOL (test code = 2237) 171 MG/DL RISK RATIO LDL/HDL (test cod e = 2238) 2.76 RATIO MARIBELL Sood [id number] 00:00:00* Test Item Value Reference Range Interpretation Comme nts TSH, THIRD GENERATION (test code = 2821) 2.490 UIU/ML Cody GrossmanLIPID [id number] 00:00:00* Test Item Value Reference Range Interpretation Comme nts CHOLESTEROL (test code = 2210) 270 MG/DL TRIGLYCERIDES (test code = 2232) 210 MG/DL HDL CHOLESTEROL (test code = 2220) 62 MG/DL CALC LDL CHOL (test code = 2237) 171 MG/DL RISK RATIO LDL/HDL (test cod e = 2238) 2.76 RATIO MARIBELL Sood [id number] 00:00:00* Test Item Value Reference Range Interpretation Comme nts TSH, THIRD GENERATION (test code = 2821) 2.490 UIU/ML Cody GrossmanLIPID [id number] 00:00:00* Test Item Value Reference Range Interpretation Comme nts CHOLESTEROL (test code = 2210) 270 MG/DL TRIGLYCERIDES (test code = 2232) 210 MG/DL HDL CHOLESTEROL (test code = 2220) 62 MG/DL CALC LDL CHOL (test code = 2237) 171 MG/DL RISK RATIO LDL/HDL (test cod e = 2238) 2.76 RATIO Cody Armendariz, THIRD [id number] 05:42:02* Test Item Value Reference Range Interpretation Comme nts TSH, THIRD GENERATION (test code = 2821) 1.560 UIU/ML 0.400-4.100 UNLESS OTHERWISE INDICATED, ALL TESTING PERFORMED AT [facility] [address] [place] [address] LABORER BITUMINOUS PAVING: DON FRANKLIN M.D. CLIA NUMBER [id number] [place]. [id number] VIN, THIRD [id number] 00:00:00* Test Item Value Reference Range Interpretation Comme nts TSH, THIRD GENERATION (test code = 2821) 1.560 UIU/ML Cody Armendariz THIRD [id number] 00:00:00* Test Item Value Reference Range Interpretation Comme nts TSH, THIRD GENERATION (test code = 2821) 1.560 UIU/ML Cody Armendariz, THIRD [id number] 00:00:00* Test Item Value Reference Range Interpretation Comme nts TSH, THIRD GENERATION (test code = 2821) 1.560 UIU/ML Cody Armendariz THIRD [id number] 06:38:56* Test Item Value Reference Range Interpretation Comme nts TSH, THIRD GENERATION (test code = 2821) 4.830 UIU/ML 0.400-4.100 H UNLESS OTHERWISE INDICATED, ALL TESTING PERFORMED AT [facility] [address] [place] [address] LABORER BITUMINOUS PAVING: DON FRANKLIN M.D. CLIA NUMBER [id number] [place] [id number] VIN, THIRD [id number] 00:00:00* Test Item Value Reference Range Interpretation Comme nts TSH, THIRD GENERATION (test code = 2821) 4.830 UIU/ML Cody Armendariz THIRD [id number] 00:00:00* Test Item Value Reference Range Interpretation Comme nts TSH, THIRD GENERATION (test code = 2821) 4.830 UIU/ML Cody Armendariz, THIRD [id number] 00:00:00* Test Item Value Reference Range Interpretation Comme nts TSH, THIRD GENERATION (test code = 2821) 4.830 UIU/ML Cody [id number] 10:08:28* Test Item Value Reference Range Interpretation Comme nts D-DIMER (test code = 1405) 0.38 UG/ML FEU See_Comment NOTE: Provided r eference range is established for evaluation of Deep Venous Thrombosis/Pulmonary Embolus (DVT/PE). Results below cutoff value of <=0.49 UG/ML FEU have a high negative predictive value forDVT/PE. No reference range is established for disseminatedintra-vascul ar coagulation (DIC). UNLESS OTHERWISE INDICATED, ALL TESTING PERFORMED AT [facility] [address] [place] [address] LABORER BITUMINOUS PAVING: DON FRANKLIN M.D. [place] NUMBER [id number] [facility] [place]. [id number] [Automated message] The system which generated this result transmitted reference range: <=0.49. The reference range was not used to interpret this result as normal/abnormal. [id number] 00:00:00* Test Item Value Reference Range Interpretation Comme nts D-DIMER (test code = 1405) 0.38 UG/MLFEU Cody Salas [id number] 00:00:00* Test Item Value Reference Range Interpretation Comme nts D-DIMER (test code = 1405) 0.38 UG/MLFEU Cody Salas [id number] 00:00:00* Test Item Value Reference Range Interpretation Comme nts D-DIMER (test code = 1405) 0.38 UG/MLFEU Cody Salas [id number] 11:10:16* Test Item Value Reference Range Interpretation Comme nts D-DIMER (test code = 1405) TEST NOT PERFORMED UG/ML FEU See_Comment Unable to perform testing, specimen not received.Charges adjusted as applicable. NOTE: Provided reference range is established for evaluation of Deep Venous Thrombosis/Pulmonary Embolus (DVT/PE). Results below cutoff value of <=0.49 UG/ML FEU have a high negative predictive value forDVT/PE. No reference range is established for disseminatedintra-vas cular coagulation (DIC). [Automated message] The system which generated this result transmitted reference range: <=0.49. The reference range was not used to interpret this result as normal/abnormal. [id number] 00:00:00* Test Item Value Reference Range Interpretation Comme nts D-DIMER (test code = 1405) TEST NOT PERFORMED UG/MLFEU Cody [id number] 00:00:00* Test Item Value Reference Range Interpretation Comme nts D-DIMER (test code = 1405) TEST NOT PERFORMED UG/MLFEU Cody Salas [id number] 00:00:00* Test Item Value Reference Range Interpretation Comme nts D-DIMER (test code = 1405) TEST NOT PERFORMED UG/MLFEU Cody [id number] 07:42:51* Test Item Value Reference Range Interpretation Comme [facility] NT-proBNP (test code = 31062) 224 PG/ML SEE BELOW If NT-ProBNP is less than 300 PG/ML, heart failure is unlikely for allages. Age.................Heart Failure Likely <50 Years...........>=450 PG/ML 50-75 Years.........>=900 PG/ML > 75 Years..........>=1800 PG/ML Methodology: [employer] Immunoassay EGFR, CREATININE AND [id number] 07:42:45* Test Item Value Reference Range Interpretation Comme [facility] CYSTATIN-C (test code = 30672) 1.3 MG/L 0.6-1.2 H CREATININE (test code = 2214) 1.01 MG/DL 0.60-1.30 eGFR CYS-CR.(2020 CKD-EPI) (test code = 98662) 53 ML/MIN/1.73 >59 L COMPREHENSIVE METABOLIC [id number] 07:35:42* Test Item Value Reference Range Interpretation Comme [facility] GLUCOSE (test code = 2217) 112 MG/DL 70-99 H BUN (test code = 2208) 30 MG/DL 8-23 H CREATININE (test code = 2214) 1.01 MG/DL 0.60-1.30 eGFR (2020 CKD-EPI) (test code = 97806) 56 ML/MIN/1.73 >60 L The NKF-ASN Taskforce recommends use of Cystatin C to confirm eGFR inadults at risk for CKD. [facility] offers eGFR with Cystatin C-Creatinineusing the 2020 CKD-EPI eGFR_creat-cystat equation (order code 3057) toincrease the accuracy of estimated GFR. For more information, contactyour accounts officer or see announcement [email or web address] CALC BUN/CREAT (test code = 2234) 30 RATIO 6-28 H SODIUM (test code = 223) 141 MEQ/L 133-146 POTASSIUM (test code = 2228) 4.3 MEQ/L 3.5-5.4 CHLORIDE (test code = 2215) 105 MEQ/L 95-107 CARBON DIOXIDE (test code = 2206) 24 MEQ/L 19-31 CALCIUM (test code = 2209) 9.3 MG/DL 8.5-10.5 PROTEIN, TOTAL (test code = 222) 6.6 G/DL 6.1-8.3 ALBUMIN (test code = 2201) 4.3 G/DL 3.5-5.2 CALC GLOBULIN (test code = 2240) 2.3 G/DL 1.9-3.7 CALC A/G RATIO (test code = 2234) 1.9 RATIO 1.0-2.6 BILIRUBIN, TOTAL (test code = 2207) 0.3 MG/DL See_Comment [Automated me ssage] The system which generated this result transmitted reference range: <=1.2. The reference range was not used to interpret this result as normal/abnormal. ALKALINE PHOSPHATASE (test code = 2204) 77 U/L 40-142 AST (test code = 2218) 16 U/L 9-40 ALT (test code = 2219) 14 U/L 5-40 TSH, THIRD [id number] 07:32:12* Test Item Value Reference Range Interpretation Comme nts TSH, THIRD GENERATION (test code = 2821) 0.393 UIU/ML 0.400-4.100 L UNLESS OTHERWISE INDICATED, ALL TESTING PERFORMED AT [facility] [address] [place] [address] LABORER BITUMINOUS PAVING: DON FRANKLIN M.D. CLIA NUMBER [id number] [place]. [id number] CBC W/AUTO DIFF WITH [id number] 03:26:27* Test Item Value Reference Range Interpretation Comme nts WBC (test code = 1001) 8.2 K/UL 3.5-11.0 RBC (test code = 1002) 4.50 M/UL 3.80-5.40 HEMOGLOBIN (test code = 1003) 12.4 G/DL 11.5-15.5 HEMATOCRIT (test code = 1004) 37.7 % 34.0-45.0 MCV (test code = 1005) 83.8 fL 80.0-99.0 MCH (test code = 1006) 27.6 PG 25.0-33.0 MCHC (test code = 1007) 32.9 G/DL 31.0-36.0 RDW (test code = 1038) 14.2 % 11.5-15.0 NEUTROPHILS (test code = 1008) 67.9 % LYMPHOCYTES (test code = 1010) 21.4 % MONOCYTES (test code = 1011) 7.0 % EOSINOPHILS (test code = 1012) 3.1 % BASOPHILS (test code = 1013) 0.4 % IMMATURE GRANULOCYTES (test code = 1036) 0.2 % NUCLEATED RBCS (test code = 1065) 0.0 /100 WBC'S See_Comment [Automated Lab[employer]iv[employer] ge] The system which generated this result transmitted reference range: 0.0. The reference range was not used to interpret this result as normal/abnormal. PLATELET COUNT (test code = 1015) 199 K/UL 130-400 ABSOLUTE NEUTROPHILS (test code = 1066) 5.55 K/UL 1.50-7.50 ABSOLUTE LYMPHOCYTES (test code = 1067) 1.75 K/UL 1.00-4.00 ABSOLUTE MONOCYTES (test code = 1068) 0.57 K/UL 0.20-1.00 ABSOLUTE EOSINOPHILS (test code = 1040) 0.25 K/UL 0.00-0.50 ABSOLUTE BASOPHILS (test code = 1069) 0.03 K/UL 0.00-0.20 ABS IMMATURE GRANULOCYTES (test code = 1020) 0.02 K/UL 0.00-0.10 ABS NUCLEATED RBCS (test code = 77666) 0.00 K/UL 0.00-0.11 CBC W/AUTO [id number] 00:00:00* Test Item Value Reference Range Interpretation Comme nts WBC (test code = 1001) 8.2 K/UL RBC (test code = 1002) 4.50 M/UL HEMOGLOBIN (test code = 1003) 12.4 G/DL HEMATOCRIT (test code = 1004) 37.7 % MCV (test code = 1005) 83.8 fL MCH (test code = 1006) 27.6 PG MCHC (test code = 1007) 32.9 G/DL RDW (test code = 1038) 14.2 % NEUTROPHILS (test code = 1008) 67.9 % LYMPHOCYTES (test code = 1010) 21.4 % MONOCYTES (test code = 1011) 7.0 % EOSINOPHILS (test code = 1012) 3.1 % BASOPHILS (test code = 1013) 0.4 % IMMATURE GRANULOCYTES (test code = 1036) 0.2 % NUCLEATED RBCS (test code = 1065) 0.0 /100WBC'S PLATELET COUNT (test code = 1015) 199 K/UL ABSOLUTE NEUTROPHILS (test c ode = 1066) 5.55 K/UL ABSOLUTE LYMPHOCYTES (test c ode = 1067) 1.75 K/UL ABSOLUTE MONOCYTES (test cod e = 1068) 0.57 K/UL ABSOLUTE EOSINOPHILS (test c ode = 1040) 0.25 K/UL ABSOLUTE BASOPHILS (test cod e = 1069) 0.03 K/UL ABS IMMATURE GRANULOCYTES (t est code = 1020) 0.02 K/UL ABS NUCLEATED RBCS (test cod e = 01670) 0.00 K/UL Cody F AustinCOMPREHENSIVE METABOLIC [id number] 00:00:00* Test Item Value Reference Range Interpretation Comme nts GLUCOSE (test code = 2217) 112 MG/DL BUN (test code = 2208) 30 MG/DL CREATININE (test code = 2214) 1.01 MG/DL eGFR (2020 CKD-EPI) (test co de = 76977) 56 ML/MIN/1.73 CALC BUN/CREAT (test code = 2235) 30 RATIO SODIUM (test code = 2231) 141 MEQ/L POTASSIUM (test code = 2228) 4.3 MEQ/L CHLORIDE (test code = 2215) 105 MEQ/L CARBON DIOXIDE (test code = 2206) 24 MEQ/L CALCIUM (test code = 2209) 9.3 MG/DL PROTEIN, TOTAL (test code = 2229) 6.6 G/DL ALBUMIN (test code = 2201) 4.3 G/DL CALC GLOBULIN (test code = 2240) 2.3 G/DL CALC A/G RATIO (test code = 2234) 1.9 RATIO BILIRUBIN, TOTAL (test code = 2207) 0.3 MG/DL ALKALINE PHOSPHATASE (test code = 2204) 77 U/L AST (test code = 2218) 16 U/L ALT (test code = 2219) 14 U/L Cody GrossmanIwperwDF-[id number] 00:00:00* Test Item Value Reference Range Interpretation Comme nts NT-proBNP (test code = 50064) 224 PG/ML Cody GrossmanHyconqHHQOFAFX-[id number] 00:00:00* Test Item Value Reference Range Interpretation Comme nts CYSTATIN-C (test code = 11190) 1.3 MG/L CREATININE (test code = 2213) 1.01 MG/DL eGFR CYS-CR.(2020 CKD-EPI) (test code = 19848) 53 ML/MIN/1.73 Cody GrossmanTSH, THIRD [id number] 00:00:00* Test Item Value Reference Range Interpretation Comme nts TSH, THIRD GENERATION (test code = 2821) 0.393 UIU/ML Cody GrossmanCBC W/AUTO [id number] 00:00:00* Test Item Value Reference Range Interpretation Comme nts WBC (test code = 1001) 8.2 K/UL RBC (test code = 1002) 4.50 M/UL HEMOGLOBIN (test code = 1003) 12.4 G/DL HEMATOCRIT (test code = 1004) 37.7 % MCV (test code = 1005) 83.8 fL MCH (test code = 1006) 27.6 PG MCHC (test code = 1007) 32.9 G/DL RDW (test code = 1038) 14.2 % NEUTROPHILS (test code = 1008) 67.9 % LYMPHOCYTES (test code = 1010) 21.4 % MONOCYTES (test code = 1011) 7.0 % EOSINOPHILS (test code = 1012) 3.1 % BASOPHILS (test code = 1013) 0.4 % IMMATURE GRANULOCYTES (test code = 1036) 0.2 % NUCLEATED RBCS (test code = 1065) 0.0 /100WBC'S PLATELET COUNT (test code = 1015) 199 K/UL ABSOLUTE NEUTROPHILS (test c ode = 1066) 5.55 K/UL ABSOLUTE LYMPHOCYTES (test c ode = 1067) 1.75 K/UL ABSOLUTE MONOCYTES (test cod e = 1068) 0.57 K/UL ABSOLUTE EOSINOPHILS (test c ode = 1040) 0.25 K/UL ABSOLUTE BASOPHILS (test cod e = 1069) 0.03 K/UL ABS IMMATURE GRANULOCYTES (t est code = 1020) 0.02 K/UL ABS NUCLEATED RBCS (test cod e = 97906) 0.00 K/UL Cody GrossmanCOMPREHENSIVE METABOLIC [id number] 00:00:00* Test Item Value Reference Range Interpretation Comme nts GLUCOSE (test code = 2217) 112 MG/DL BUN (test code = 2208) 30 MG/DL CREATININE (test code = 2214) 1.01 MG/DL eGFR (2020 CKD-EPI) (test co de = 21201) 56 ML/MIN/1.73 CALC BUN/CREAT (test code = 2235) 30 RATIO SODIUM (test code = 2231) 141 MEQ/L POTASSIUM (test code = 2228) 4.3 MEQ/L CHLORIDE (test code = 2215) 105 MEQ/L CARBON DIOXIDE (test code = 2206) 24 MEQ/L CALCIUM (test code = 2209) 9.3 MG/DL PROTEIN, TOTAL (test code = 2229) 6.6 G/DL ALBUMIN (test code = 2201) 4.3 G/DL CALC GLOBULIN (test code = 2240) 2.3 G/DL CALC A/G RATIO (test code = 2234) 1.9 RATIO BILIRUBIN, TOTAL (test code = 2207) 0.3 MG/DL ALKALINE PHOSPHATASE (test code = 2204) 77 U/L AST (test code = 2218) 16 U/L ALT (test code = 2219) 14 U/L Cody Salas [id number]-[id number] 00:00:00* Test Item Value Reference Range Interpretation Comme nts NT-proBNP (test code = 68058) 224 PG/ML Cody GrossmanSpmzuxPWTFCIHX-[id number] 00:00:00* Test Item Value Reference Range Interpretation Comme nts CYSTATIN-C (test code = 45318) 1.3 MG/L CREATININE (test code = 2214) 1.01 MG/DL eGFR CYS-CR.(2020 CKD-EPI) (test code = 00420) 53 ML/MIN/1.73 Cody Armendariz, THIRD [id number] 00:00:00* Test Item Value Reference Range Interpretation Comme nts TSH, THIRD GENERATION (test code = 2821) 0.393 UIU/ML Cody GrossmanCBC W/AUTO [id number] 00:00:00* Test Item Value Reference Range Interpretation Comme nts WBC (test code = 1001) 8.2 K/UL RBC (test code = 1002) 4.50 M/UL HEMOGLOBIN (test code = 1003) 12.4 G/DL HEMATOCRIT (test code = 1004) 37.7 % MCV (test code = 1005) 83.8 fL MCH (test code = 1006) 27.6 PG MCHC (test code = 1007) 32.9 G/DL RDW (test code = 1038) 14.2 % NEUTROPHILS (test code = 1008) 67.9 % LYMPHOCYTES (test code = 1010) 21.4 % MONOCYTES (test code = 1011) 7.0 % EOSINOPHILS (test code = 1012) 3.1 % BASOPHILS (test code = 1013) 0.4 % IMMATURE GRANULOCYTES (test code = 1036) 0.2 % NUCLEATED RBCS (test code = 1065) 0.0 /100WBC'S PLATELET COUNT (test code = 1015) 199 K/UL ABSOLUTE NEUTROPHILS (test c ode = 1066) 5.55 K/UL ABSOLUTE LYMPHOCYTES (test c ode = 1067) 1.75 K/UL ABSOLUTE MONOCYTES (test cod e = 1068) 0.57 K/UL ABSOLUTE EOSINOPHILS (test c ode = 1040) 0.25 K/UL ABSOLUTE BASOPHILS (test cod e = 1069) 0.03 K/UL ABS IMMATURE GRANULOCYTES (t est code = 1020) 0.02 K/UL ABS NUCLEATED RBCS (test cod e = 18838) 0.00 K/UL Cody GrossmanCOMPREHENSIVE METABOLIC [id number] 00:00:00* Test Item Value Reference Range Interpretation Comme nts GLUCOSE (test code = 2217) 112 MG/DL BUN (test code = 2208) 30 MG/DL CREATININE (test code = 2214) 1.01 MG/DL eGFR (2020 CKD-EPI) (test co de = 80874) 56 ML/MIN/1.73 CALC BUN/CREAT (test code = 2235) 30 RATIO SODIUM (test code = 2231) 141 MEQ/L POTASSIUM (test code = 2228) 4.3 MEQ/L CHLORIDE (test code = 2215) 105 MEQ/L CARBON DIOXIDE (test code = 2206) 24 MEQ/L CALCIUM (test code = 2209) 9.3 MG/DL PROTEIN, TOTAL (test code = 2229) 6.6 G/DL ALBUMIN (test code = 2201) 4.3 G/DL CALC GLOBULIN (test code = 2240) 2.3 G/DL CALC A/G RATIO (test code = 2234) 1.9 RATIO BILIRUBIN, TOTAL (test code = 2207) 0.3 MG/DL ALKALINE PHOSPHATASE (test code = 2204) 77 U/L AST (test code = 2218) 16 U/L ALT (test code = 2219) 14 U/L Cody GrossmanZjdnonPO-[id number] 00:00:00* Test Item Value Reference Range Interpretation Comme [facility] NT-proBNP (test code = 05947) 224 PG/ML Cody [id number] 00:00:00* Test Item Value Reference Range Interpretation Comme [facility] CYSTATIN-C (test code = 03559) 1.3 MG/L CREATININE (test code = 2214) 1.01 MG/DL eGFR CYS-CR.(2020 CKD-EPI) (test code = 30640) 53 ML/MIN/1.73 Cody GrossmanTSH, THIRD [id number] 00:00:00* Test Item Value Reference Range Interpretation Comme [facility] TSH, THIRD GENERATION (test code = 2821) 0.393 UIU/ML Cody GrossmanVITAMIN D, 25 [id number] 10:13:08* Test Item Value Reference Range Interpretation Comme [facility] VITAMIN D, 25 OH (test code = 4958) 21 NG/ML SEE BELOW L EFFECTIVE 02/2023, PLEASE NOTE NEW METHODOLOGY IS ELECTROCHEMILUMINESCENCE BINDING ASSAY. NOTE: 25-HYDROXYVITAMIN D ASSAY INCLUDES 25-HYDROXYVITAMIN D2 AND D3. INTERPRETIVE RANGES PEDIATRIC (<17 YEARS) . . . . . . . . . . . NG/ML 20-100ADULT: INSUFFICIENT . . . . . . . . . . . . . . NG/ML <20 SUBOPTIMAL . . . . . . . . . . . . . . . NG/ML 20-29 OPTIMAL . . . . . . . . . . . . . . . . . NG/ML 30-100 UNLESS OTHERWISE INDICATED, ALL TESTING PERFORMED AT [facility] [address] [place] [address] LABORER BITUMINOUS PAVING: DON FRANKLIN M.D. [place] NUMBER [id number] [facility] [place]. [id number] TSH, THIRD [id number] 10:12:44* Test Item Value Reference Range Interpretation Comme nts TSH, THIRD GENERATION (test code = 2821) 0.800 UIU/ML 0.400-4.100 TROPONIN [id number] 09:41:44* Test Item Value Reference Range Interpretation Comme nts TROPONIN T (test code = 4017) 8 NG/L <14 INTERPRETIVE INFORMATION:METHODOLOGY IS 5TH GENERATION HIGH SENSITIVITY CARDIAC TROPONIN.REFERENCE INTERVALS GIVEN ABOVE ARE BELOW THE 99TH PERCENTILE OFAPPARENTLY HEALTHY ADULT PATIENTS. ELEVATIONS OF CARDIAC TROPONIN TMAY BE SEEN IN PATIENTS WITH MYOCARDIAL INJURY, SEEN IN STABLE ORUNSTABLE ANGINA, HEART FAILURE, MYOCARDITIS, PULMONARY EMBOLISM,PERICARDITIS, ARRHYTHMIAS, CARDIAC CONTUSIONS, AND CARDIAC TRANSPLANTSELEVATIONS ARE ALSO NOTABLE IN PATIENTS WITH RHABDOMYOLYSIS ANDPOLYMYOSITIS. FOR MORE INFORMATION, SEE CLIENT ANNOUNCEMENT AT [email or web address] COMPREHENSIVE METABOLIC [id number] 07:00:37* Test Item Value Reference Range Interpretation Comme nts GLUCOSE (test code = 2217) 88 MG/DL 70-99 BUN (test code = 2208) 27 MG/DL 8-23 H CREATININE (test code = 2214) 1.05 MG/DL 0.60-1.30 eGFR (2020 CKD-EPI) (test code = 90807) 53 ML/MIN/1.73 >60 L The NKF-ASN Taskforce recommends use of Cystatin C to confirm eGFR inadults at risk for CKD. [facility] offers eGFR with Cystatin C-Creatinineusing the 2020 CKD-EPI eGFR_creat-cystat equation (order code 3057) toincrease the accuracy of estimated GFR. For more information, contactyour accounts officer or see announcement [email or web address] CALC BUN/CREAT (test code = 2234) 26 RATIO 6-28 SODIUM (test code = 2230) 143 MEQ/L 133-146 POTASSIUM (test code = 2227) 4.5 MEQ/L 3.5-5.4 CHLORIDE (test code = 2214) 104 MEQ/L 95-107 CARBON DIOXIDE (test code = 2205) 29 MEQ/L 19-31 CALCIUM (test code = 220) 9.5 MG/DL 8.5-10.5 PROTEIN, TOTAL (test code = 2228) 6.7 G/DL 6.1-8.3 ALBUMIN (test code = 2200) 4.6 G/DL 3.5-5.2 CALC GLOBULIN (test code = 2240) 2.1 G/DL 1.9-3.7 CALC A/G RATIO (test code = 2233) 2.2 RATIO 1.0-2.6 BILIRUBIN, TOTAL (test code = 2206) <0.2 MG/DL See_Comment [Automated me ssage] The system which generated this result transmitted reference range: <=1.2. The reference range was not used to interpret this result as normal/abnormal. ALKALINE PHOSPHATASE (test code = 2203) 80 U/L 40-142 AST (test code = 2218) 14 U/L 9-40 ALT (test code = 2219) 12 U/L 5-40 LIPID [id number] 07:00:37* Test Item Value Reference Range Interpretation Comme nts CHOLESTEROL (test code = 2210) 180 MG/DL <200 TRIGLYCERIDES (test code = 2232) 237 MG/DL <150 H HDL CHOLESTEROL (test code = 2220) 52 MG/DL >39 CALC LDL CHOL (test code = 223) 95 MG/DL <100 NOTE: CALCULATED LDL IS BASED ON MIRELLA-BE METHOD WHICHINCLUDES ADJUSTABLE TRIGLYCERIDE:VLDL CHOLESTEROL RATIO.THIS FACTOR VARIES BY MEASURED TRIGLYCERIDE AND NON-HDLCHOLESTEROL CONCENTRATIONS WITH INCREASED CALCULATED LDL SEENIN HIGHER TRIGLYCERIDE OR LOWER NON-HDL SPECIMENS. FOR MOREINFORMATION, SEE CLIENT ANNOUNCEMENT AT [email or web address] RISK RATIO LDL/HDL (test code = 2238) 1.83 RATIO <3.22 CBC W/AUTO DIFF WITH [id number] 03:12:45* Test Item Value Reference Range Interpretation Comme nts WBC (test code = 1001) 7.1 K/UL 3.5-11.0 RBC (test code = 1002) 4.48 M/UL 3.80-5.40 HEMOGLOBIN (test code = 1003) 12.4 G/DL 11.5-15.5 HEMATOCRIT (test code = 1004) 37.3 % 34.0-45.0 MCV (test code = 1005) 83.3 fL 80.0-99.0 MCH (test code = 1006) 27.7 PG 25.0-33.0 MCHC (test code = 1007) 33.2 G/DL 31.0-36.0 RDW (test code = 1038) 13.9 % 11.5-15.0 NEUTROPHILS (test code = 1008) 67.4 % LYMPHOCYTES (test code = 1010) 21.8 % MONOCYTES (test code = 1011) 6.9 % EOSINOPHILS (test code = 1012) 3.0 % BASOPHILS (test code = 1013) 0.8 % IMMATURE GRANULOCYTES (test code = 1036) 0.1 % NUCLEATED RBCS (test code = 1065) 0.0 /100 WBC'S See_Comment [Automated Labtiv[employer] ge] The system which generated this result transmitted reference range: 0.0. The reference range was not used to interpret this result as normal/abnormal. PLATELET COUNT (test code = 1015) 225 K/UL 130-400 ABSOLUTE NEUTROPHILS (test code = 1066) 4.79 K/UL 1.50-7.50 ABSOLUTE LYMPHOCYTES (test code = 1067) 1.55 K/UL 1.00-4.00 ABSOLUTE MONOCYTES (test code = 1068) 0.49 K/UL 0.20-1.00 ABSOLUTE EOSINOPHILS (test code = 1040) 0.21 K/UL 0.00-0.50 ABSOLUTE BASOPHILS (test code = 1069) 0.06 K/UL 0.00-0.20 ABS IMMATURE GRANULOCYTES (test code = 1020) 0.01 K/UL 0.00-0.10 ABS NUCLEATED RBCS (test code = 41079) 0.00 K/UL 0.00-0.11 CBC W/AUTO [id number] 00:00:00* Test Item Value Reference Range Interpretation Comme nts WBC (test code = 1001) 7.1 K/UL RBC (test code = 1002) 4.48 M/UL HEMOGLOBIN (test code = 1003) 12.4 G/DL HEMATOCRIT (test code = 1004) 37.3 % MCV (test code = 1005) 83.3 fL MCH (test code = 1006) 27.7 PG MCHC (test code = 1007) 33.2 G/DL RDW (test code = 1038) 13.9 % NEUTROPHILS (test code = 1008) 67.4 % LYMPHOCYTES (test code = 1010) 21.8 % MONOCYTES (test code = 1011) 6.9 % EOSINOPHILS (test code = 1012) 3.0 % BASOPHILS (test code = 1013) 0.8 % IMMATURE GRANULOCYTES (test code = 1036) 0.1 % NUCLEATED RBCS (test code = 1065) 0.0 /100WBC'S PLATELET COUNT (test code = 1015) 225 K/UL ABSOLUTE NEUTROPHILS (test c ode = 1066) 4.79 K/UL ABSOLUTE LYMPHOCYTES (test c ode = 1067) 1.55 K/UL ABSOLUTE MONOCYTES (test cod e = 1068) 0.49 K/UL ABSOLUTE EOSINOPHILS (test c ode = 1040) 0.21 K/UL ABSOLUTE BASOPHILS (test cod e = 1069) 0.06 K/UL ABS IMMATURE GRANULOCYTES (t est code = 1020) 0.01 K/UL ABS NUCLEATED RBCS (test cod e = 73071) 0.00 K/UL Cody F AustinCOMPREHENSIVE METABOLIC [id number] 00:00:00* Test Item Value Reference Range Interpretation Comme nts GLUCOSE (test code = 2217) 88 MG/DL BUN (test code = 2208) 27 MG/DL CREATININE (test code = 2214) 1.05 MG/DL eGFR (2020 CKD-EPI) (test co de = 87362) 53 ML/MIN/1.73 CALC BUN/CREAT (test code = 2235) 26 RATIO SODIUM (test code = 2231) 143 MEQ/L POTASSIUM (test code = 2228) 4.5 MEQ/L CHLORIDE (test code = 2215) 104 MEQ/L CARBON DIOXIDE (test code = 2206) 29 MEQ/L CALCIUM (test code = 2209) 9.5 MG/DL PROTEIN, TOTAL (test code = 2229) 6.7 G/DL ALBUMIN (test code = 2201) 4.6 G/DL CALC GLOBULIN (test code = 2240) 2.1 G/DL CALC A/G RATIO (test code = 2234) 2.2 RATIO BILIRUBIN, TOTAL (test code = 2207) <0.2 MG/DL ALKALINE PHOSPHATASE (test code = 2204) 80 U/L AST (test code = 2218) 14 U/L ALT (test code = 2219) 12 U/L Cody GrossmanTROPONIN [id number] 00:00:00* Test Item Value Reference Range Interpretation Comme nts TROPONIN T (test code = 4017) 8 NG/L Cody Salas ChaunceyLIPID [id number] 00:00:00* Test Item Value Reference Range Interpretation Comme nts CHOLESTEROL (test code = 2210) 180 MG/DL TRIGLYCERIDES (test code = 2232) 237 MG/DL HDL CHOLESTEROL (test code = 2220) 52 MG/DL CALC LDL CHOL (test code = 2237) 95 MG/DL RISK RATIO LDL/HDL (test cod e = 2238) 1.83 RATIO Cody Salas ChaunceyTSH, THIRD [id number] 00:00:00* Test Item Value Reference Range Interpretation Comme [facility] TSH, THIRD GENERATION (test code = 2821) 0.800 UIU/ML Cody Salas ChaunceyVITAMIN D, 25 [id number] 00:00:00* Test Item Value Reference Range Interpretation Comme nts VITAMIN D, 25 OH (test code = 4958) 21 NG/ML Cody Salas ChaunceyCBC W/AUTO [id number] 00:00:00* Test Item Value Reference Range Interpretation Comme nts WBC (test code = 1001) 7.1 K/UL RBC (test code = 1002) 4.48 M/UL HEMOGLOBIN (test code = 1003) 12.4 G/DL HEMATOCRIT (test code = 1004) 37.3 % MCV (test code = 1005) 83.3 fL MCH (test code = 1006) 27.7 PG MCHC (test code = 1007) 33.2 G/DL RDW (test code = 1038) 13.9 % NEUTROPHILS (test code = 1008) 67.4 % LYMPHOCYTES (test code = 1010) 21.8 % MONOCYTES (test code = 1011) 6.9 % EOSINOPHILS (test code = 1012) 3.0 % BASOPHILS (test code = 1013) 0.8 % IMMATURE GRANULOCYTES (test code = 1036) 0.1 % NUCLEATED RBCS (test code = 1065) 0.0 /100WBC'S PLATELET COUNT (test code = 1015) 225 K/UL ABSOLUTE NEUTROPHILS (test c ode = 1066) 4.79 K/UL ABSOLUTE LYMPHOCYTES (test c ode = 1067) 1.55 K/UL ABSOLUTE MONOCYTES (test cod e = 1068) 0.49 K/UL ABSOLUTE EOSINOPHILS (test c ode = 1040) 0.21 K/UL ABSOLUTE BASOPHILS (test cod e = 1069) 0.06 K/UL ABS IMMATURE GRANULOCYTES (t est code = 1020) 0.01 K/UL ABS NUCLEATED RBCS (test cod e = 71460) 0.00 K/UL Cody GrossmanCOMPREHENSIVE METABOLIC [id number] 00:00:00* Test Item Value Reference Range Interpretation Comme nts GLUCOSE (test code = 2217) 88 MG/DL BUN (test code = 2208) 27 MG/DL CREATININE (test code = 2214) 1.05 MG/DL eGFR (2020 CKD-EPI) (test co de = 29598) 53 ML/MIN/1.73 CALC BUN/CREAT (test code = 2235) 26 RATIO SODIUM (test code = 2231) 143 MEQ/L POTASSIUM (test code = 2228) 4.5 MEQ/L CHLORIDE (test code = 2215) 104 MEQ/L CARBON DIOXIDE (test code = 2206) 29 MEQ/L CALCIUM (test code = 2209) 9.5 MG/DL PROTEIN, TOTAL (test code = 2229) 6.7 G/DL ALBUMIN (test code = 2201) 4.6 G/DL CALC GLOBULIN (test code = 2240) 2.1 G/DL CALC A/G RATIO (test code = 2234) 2.2 RATIO BILIRUBIN, TOTAL (test code = 2207) <0.2 MG/DL ALKALINE PHOSPHATASE (test code = 2204) 80 U/L AST (test code = 2218) 14 U/L ALT (test code = 2219) 12 U/L Cody GrossmanTROPONIN [id number] 00:00:00* Test Item Value Reference Range Interpretation Comme [facility] TROPONIN T (test code = 4017) 8 NG/L Cody GrossmanLIPID [id number] 00:00:00* Test Item Value Reference Range Interpretation Comme nts CHOLESTEROL (test code = 2210) 180 MG/DL TRIGLYCERIDES (test code = 2232) 237 MG/DL HDL CHOLESTEROL (test code = 2220) 52 MG/DL CALC LDL CHOL (test code = 2237) 95 MG/DL RISK RATIO LDL/HDL (test cod e = 2238) 1.83 RATIO Cody GrossmanTSH, THIRD [id number] 00:00:00* Test Item Value Reference Range Interpretation Comme [facility] TSH, THIRD GENERATION (test code = 2821) 0.800 UIU/ML Cody GrossmanVITAMIN D, 25 [id number] 00:00:00* Test Item Value Reference Range Interpretation Comme [facility] VITAMIN D, 25 OH (test code = 4958) 21 NG/ML Cody GrossmanCBC W/AUTO [id number] 00:00:00* Test Item Value Reference Range Interpretation Comme precious WBC (test code = 1001) 7.1 K/UL RBC (test code = 1002) 4.48 M/UL HEMOGLOBIN (test code = 1003) 12.4 G/DL HEMATOCRIT (test code = 1004) 37.3 % MCV (test code = 1005) 83.3 fL MCH (test code = 1006) 27.7 PG MCHC (test code = 1007) 33.2 G/DL RDW (test code = 1038) 13.9 % NEUTROPHILS (test code = 1008) 67.4 % LYMPHOCYTES (test code = 1010) 21.8 % MONOCYTES (test code = 1011) 6.9 % EOSINOPHILS (test code = 1012) 3.0 % BASOPHILS (test code = 1013) 0.8 % IMMATURE GRANULOCYTES (test code = 1036) 0.1 % NUCLEATED RBCS (test code = 1065) 0.0 /100WBC'S PLATELET COUNT (test code = 1015) 225 K/UL ABSOLUTE NEUTROPHILS (test c ode = 1066) 4.79 K/UL ABSOLUTE LYMPHOCYTES (test c ode = 1067) 1.55 K/UL ABSOLUTE MONOCYTES (test cod e = 1068) 0.49 K/UL ABSOLUTE EOSINOPHILS (test c ode = 1040) 0.21 K/UL ABSOLUTE BASOPHILS (test cod e = 1069) 0.06 K/UL ABS IMMATURE GRANULOCYTES (t est code = 1020) 0.01 K/UL ABS NUCLEATED RBCS (test cod e = 07242) 0.00 K/UL Cody GrossmanCOMPREHENSIVE METABOLIC [id number] 00:00:00* Test Item Value Reference Range Interpretation Comme nts GLUCOSE (test code = 2217) 88 MG/DL BUN (test code = 2208) 27 MG/DL CREATININE (test code = 2214) 1.05 MG/DL eGFR (2020 CKD-EPI) (test co de = 68381) 53 ML/MIN/1.73 CALC BUN/CREAT (test code = 2235) 26 RATIO SODIUM (test code = 2231) 143 MEQ/L POTASSIUM (test code = 2228) 4.5 MEQ/L CHLORIDE (test code = 2215) 104 MEQ/L CARBON DIOXIDE (test code = 2206) 29 MEQ/L CALCIUM (test code = 2209) 9.5 MG/DL PROTEIN, TOTAL (test code = 2229) 6.7 G/DL ALBUMIN (test code = 2201) 4.6 G/DL CALC GLOBULIN (test code = 2240) 2.1 G/DL CALC A/G RATIO (test code = 2234) 2.2 RATIO BILIRUBIN, TOTAL (test code = 2207) <0.2 MG/DL ALKALINE PHOSPHATASE (test code = 2204) 80 U/L AST (test code = 2218) 14 U/L ALT (test code = 2219) 12 U/L Cody GrossmanTROPONIN [id number] 00:00:00* Test Item Value Reference Range Interpretation Comme nts TROPONIN T (test code = 4017) 8 NG/L Cody GrossmanLIPID [id number] 00:00:00* Test Item Value Reference Range Interpretation Comme nts CHOLESTEROL (test code = 2210) 180 MG/DL TRIGLYCERIDES (test code = 2232) 237 MG/DL HDL CHOLESTEROL (test code = 2220) 52 MG/DL CALC LDL CHOL (test code = 2237) 95 MG/DL RISK RATIO LDL/HDL (test cod e = 2238) 1.83 RATIO Cody GrossmanTSH, THIRD [id number] 00:00:00* Test Item Value Reference Range Interpretation Comme [facility] TSH, THIRD GENERATION (test code = 2821) 0.800 UIU/ML Cody GrossmanVITAMIN D, 25 [id number] 00:00:00* Test Item Value Reference Range Interpretation Comme [facility] VITAMIN D, 25 OH (test code = 4958) 21 NG/ML Cody Grossman
[2024-07-21] MEDS ORDERED: ONDANSETRON 4 MG/2 ML VIAL ONE (16:54)
[2024-07-21] MEDS ORDERED: MORPHINE 4 MG/ML SYR ONE (16:54)
[2024-07-21] MEDS ORDERED: KETOROLAC 30 MG/ML INJ ONE (16:59)
[2024-07-21] MEDS ORDERED: NA CHLORIDE 0.9% 500 ML ONE (17:08)
[2024-07-21 17:10] LABS: Absolute Basophils 0.1 K/uL (0-0.5); Absolute Eosinophils 0.2 K/uL (0-0.5); Absolute Lymphocytes (CBC) 1.4 K/uL (0.7-4.9); Absolute Monocytes 0.5 K/uL (0.1-1.3); Absolute Neutrophil 7.6 K/uL (1.8-8.0); Basophils % 0.9 % (0-1.3); Eosinophils % 2.5 % (0-4.4); Hemoglobin 13.6 g/dL (12.0-15.0); Lymphocytes % 13.9 % (15.3-44.8); MCH 28.2 pg (27.0-35.0); MCV 82.9 fL (80-100); MPV 9.9 fL (7.6-11.3); Monocytes % 5.4 % (3.3-12.3); Neutrophils % 77.3 % (41.7-73.7); Nucleated Red Blood Cells % 0.1 % (0-0); Platelets 205 thou/uL (152-406); RBC Red Blood Cell Count 4.82 M/uL (3.86-4.86); Red Cell Distribution Width 14.9 % (12.1-15.2)
[2024-07-21 17:12] LABS: Specific Gravity 1.017 (1.005-1.030); Sqamous Epithelial <5 /HPF (None Seen); Urine Bacteria <20 /HPF (<20); Urine Bilirubin NEGATIVE (Negative); Urine Blood Negative (Negative); Urine Clarity Clear (Clear); Urine Color Colorless (Yellow); Urine Crystals Unidentified Few /HPF (None Seen); Urine Culture Reflex Order NOT NEEDED; Urine Glucose NEGATIVE (Negative); Urine Ketones NEGATIVE (Negative); Urine Micro Reflex YN NO BILL MICROSCOPIC; Urine Nitrite NEGATIVE (Negative); Urine Protein TRACE (Negative); Urine RBC <5 /HPF (None Seen); Urine Urobilinogen Normal (Normal); Urine WBC <5 /HPF (<5); Urine Yeast (Budding) Trace /HPF (None Seen); Urine pH 6.5 (5.0-7.0)
[2024-07-21 17:29] LABS: BUN Blood Urea Nitrogen 26 mg/dL (7-18); Bicarbonate 27 mEq/L (21-32); Glucose Level 118 mg/dL (74-106); Sodium Level 140 mEq/L (136-145)
[2024-07-21 17:30] LABS: ALT/SGPT 21 U/L (13-56); AST/SGOT 22 U/L (15-37); Albumin 3.6 g/dL (3.4-5.0); Albumin/Globulin Ratio 0.9 (1.1-1.8); Alkaline Phosphatase 80 U/L (45-117); Bilirubin Total 0.3 mg/dL (0.2-1.0); Globulin 3.9 g/dL (2.3-3.5); Glomerular Filtration Rate 58 ml/min (=/>90); Lipase 95 U/L (13-75); Protein, Total 7.5 g/dL (6.4-8.2)
[2024-07-21] MEDS ORDERED: FENTANYL CITR 100 MCG/2 ML ONE (17:35)
--- NOTE | 2024-07-21 18:15 | RAD REPORT ---
EXAMINATION: CT ABDOMEN AND PELVIS WITH AND WITHOUT CONTRAST CLINICAL INDICATION: Female, 83 years old.right flank pain TECHNIQUE: CT abdomen and pelvis was performed before and after the administration of IV contrast as per department protocol. Axial, sagittal and coronal reconstructions were obtained. One or more of the following dose reduction techniques were used: Automated exposure control, adjustment of the mA a nd/or kV according to patient size, and/or iterative reconstruction. Unless otherwise specified, incidental findings do not require dedicated imaging follow-up. [id number]. COMPARISON: No prior exam. FINDINGS: LOWER CHEST: No acute process identified.No significant pericardial effusion. Mild circumferential th ickening of the distal esophagus which could reflect esophagitis. UPPER GI: No significant abnormality. LIVER: Benign appearing low density liver lesions. No suspicious mass. GALLBLADDER/BILE DUCTS: No biliary ductal dilatation.? PANCREAS: No mass, ductal dilation, or lisa-pancreatic fluid. SPLEEN: Unremarkable. ADRENALS: No adrenal masses. KIDNEYS AND URETERS: No hydronephrosis.Low density and/or too small to characterize renal lesions whi ch are statistically benign.Nonobstructive nephrolithiasis.Intermediate attenuation lesion in the interpolar aspect of the left kidney measuring 11 mm does not enhance and is consistent with a hemorr hagic or proteinaceous cyst. ABDOMINAL AORTA AND OTHER VESSELS: Moderate atherosclerotic changes without aortic aneurysm. PERITONEUM: No abnormal free fluid. No free air. LYMPH NODES: No pathologic lymphadenopathy. ABDOMINAL WALL: Small fat containing umbilical hernia. SMALL BOWEL/COLON: Small bowel has normal course and caliber. No colonic wall thickening or pericolon ic inflammatory changes.Normal appendix. Moderate diverticulosis without diverticulitis. URINARY BLADDER: Underdistended but grossly unremarkable. REPRODUCTIVE ORGANS: No pathologic process. MUSCULOSKELETAL: Multilevel degenerative changes in the spine. No acute fracture. Grade 1 anterolisth esis of L4 and L5. ADDITIONAL FINDINGS: None. IMPRESSION: No acute or significant abnormalities in the abdomen or pelvis. Nonobstructive bilateral nephrolithia sis.
--- NOTE | 2024-07-21 18:47 | ER ---
Nurse's Notes [facility] Name: Nanda Nagy Age: 83 yrs Sex: Female : 1940 Arrival Date: 07/21/2024 Time: 15:39 Bed 14 Private MD: Diagnosis: Right Lower Flank Pain Presentation: 07/21 16:16 Chief complaint: Patient states: Left hip pain onset today at 1400. Pt denies any cm10 trauma or injury. Coronavirus screen: Client denies travel out of the [place] in the last 14 days. Ebola Screen: Patient denies travel to an Ebola-affected area in the 21 days before illness onset. Initial Sepsis Screen: Does the patient meet any 2 criteria? No. Patient's initial sepsis screen is negative. Does the patient have a suspected source of infection? No. Patient's initial sepsis screen is negative. Risk Assessment: Do you want to hurt yourself or someone else? Patient reports no desire to harm self or others. Onset of symptoms was July 21, 2024. 16:16 Method Of Arrival: Wheelchair cm10 16:16 Acuity: JUDITH 4 cm10 Triage Assessment: 16:17 General: Appears in no apparent distress. uncomfortable, Behavior is calm, cooperative. cm10 Pain: Complains of pain in left hip Pain currently is 10 out of 10 on a pain scale. Neuro: No deficits noted. Level of Consciousness is awake, alert, obeys commands, Oriented to person, place, time, situation, Appropriate for age. Respiratory: No deficits noted. Airway is patent Respiratory effort is even, unlabored, Respiratory pattern is regular, symmetrical. Historical: - Allergies: 16:17 No Known Allergies; cm10 - PMHx: 16:17 High Cholesterol; Hypertension; hyperthyroidism; Hypothyroidism; cm10 - Immunization history:: Adult Immunizations up to date. - Infectious Disease History:: Denies. - Social history:: Smoking status: Patient denies any tobacco usage or history of. Screenin:29 [facility] ED Fall Risk Assessment (Adult) History of falling in the last 3 months, db including since admission No falls in past 3 months (0 pts) Confusion or Disorientation No (0 pts) Intoxicated or Sedated No (0 pts) Impaired Gait No (0 pts) Mobility Assist Device Used No (0 pt) Altered Elimination No (0 pt) Score/Fall Risk Level 0 - 2 = Low Risk Oriented to surroundings, Maintained a safe environment. Abuse screen: Denies threats or abuse. Denies injuries from another. Nutritional screening: No deficits noted. Tuberculosis screening: No symptoms or risk factors identified. Assessment: 16:29 Reassessment: Patient appears in no apparent distress at this time. Patient and/or db family updated on plan of care and expected duration. Pain level reassessed. Patient is alert, oriented x 3, equal unlabored respirations, skin warm/dry/pink. General: Appears in no apparent distress. comfortable, Behavior is calm, cooperative. Pain: Complains of pain in back and left leg and left hip. Neuro: Level of Consciousness is awake, alert, obeys commands, Oriented to person, place, time, situation. Respiratory: Airway is patent Respiratory effort is even, unlabored, Respiratory pattern is regular, symmetrical. 17:40 Reassessment: PATIENT COMPLAINING OF RIGHT UPPER ABD AND SIDE PAIN. STATES WANTS PAIN db MEDICATION PRIOR TO GOING TO CT. NOTIFIED PROVIDER. SEE MAR FOR MEDICATION ADMINISTRATION. 18:20 Reassessment: Patient appears in no apparent distress at this time. Patient and/or db family updated on plan of care and expected duration. Pain level reassessed. Patient is alert, oriented x 3, equal unlabored respirations, skin warm/dry/pink. PATIENT ASSISTED TO A BEDSIDE COMMODE. Vital Signs: 16:16 BP 164 / 74; Pulse 73; Resp 15; Temp 98.3; Pulse Ox 100% on R/A; Weight 81.65 kg; cm10 Height 5 ft. 0 in. ; Pain 10/10; 16:56 BP 175 / 71; Pulse 70; Resp 18; Pulse Ox 99% on R/A; db 17:30 BP 171 / 81; Pulse 78; Resp 18; Pulse Ox 100% on R/A; db 18:30 BP 150 / 55; Pulse 78; Resp 18; Pulse Ox 99% on R/A; db 16:16 Body Mass Index 35.15 (81.65 kg, 152.4 cm) cm10 16:16 Pain Scale: Adult cm10 ED Course: 15:43 Patient arrived in ED. ra3 15:53 Sridhar Wei PA is PHCP. cp 15:53 Maikel Toro MD is Attending Physician. cp 16:17 Triage completed. cm10 16:17 Arm band placed on right wrist. Patient placed in an exam room, on a stretcher. cm10 16:29 Michelle Del Valle, RN is Primary Nurse. db 16:29 Patient has correct armband on for positive identification. Bed in low position. Call db light in reach. Side rails up X 1. Provided Education on:. Pulse ox on. NIBP on. Warm blanket given. Pillow given. 16:55 Inserted saline lock: 20 gauge in left antecubital area, using aseptic technique. Blood am7 collected. Flushed with 10 mL NS. 16:59 Urinalysis W/Microscopic Sent. am7 18:00 CT Abd/Pelvis- W/WO Contrast In Process Unspecified. EDMS 19:27 Yoel Caraballo, BLAYNE is Primary Nurse. ay 19:27 IV discontinued, intact, bleeding controlled, No redness/swelling at site. Pressure ay dressing applied. Administered Medications: 17:00 Drug: Ondansetron IVP 4 mg IVP once; over 2 minutes Route: IVP; Site: left antecubital; db 17:01 Drug: Ketorolac IVP 15 mg IVP once Route: IVP; Site: left antecubital; db 19:29 Follow up: Response: No adverse reaction ay 17:03 Not Given (Patient Refused): morphineor iv 4 mg IVP once over 4 mins db 17:11 Drug: NS 0.9% IV 500 ml 500 ml IV at 1 bolus once; to be given as a bolus over 60 db minutes Volume: 500 ml; Route: IV; Rate: 1 bolus; Site: left antecubital; 19:29 Follow up: Response: No adverse reaction; IV Status: Completed infusion; IV Intake: ay 500ml 17:43 Drug: fentaNYL (PF) IVP 25 mcg IVP once Route: IVP; Site: left antecubital; db 19:28 Follow up: Response: No adverse reaction ay 18:15 Drug: fentaNYL (PF) IVP 25 mcg IVP once Route: IVP; Site: left antecubital; db 19:28 Follow up: Response: No adverse reaction ay Medication: 16:29 VIS not applicable for this client. db Intake: 19:29 IV: 500ml; Total: 500ml. ay Outcome: 18:47 Discharge ordered by . cp 19:27 Discharged to home via wheelchair, ay 19:27 Condition: stable 19:27 Discharge instructions given to patient, Instructed on discharge instructions, follow up and referral plans. Demonstrated understanding of instructions, follow-up care, medications, Prescriptions given X 2, 19:28 Patient left the ED. ay Signatures: Dispatcher [employer] EDMS Sridhar Wei PA PA cp Benton, Danielle RN RN db Yumiko Springer RN RN 10 Denisha Mckinnon 3 Cristy Woods 7 Yoel Caraballo RN RN ay
--- NOTE | 2024-07-21 18:47 | EDPHYS ---
Physician Documentation [facility] Name: Nanda Nagy Age: 83 yrs Sex: Female : 1940 Arrival Date: 07/21/2024 Time: 15:39 Bed 14 Private MD: ED Physician Maikel Toro HPI: 07/21 16:15 This 83 yrs old Female presents to ER via Wheelchair with complaints of Hip cp Pain. 16:15 Patient c/o right flank pain. cp 16:15 The patient complains of pain in the right flank. cp 16:15 The pain does not radiate. Onset: The symptoms/episode began/occurred today, about cp 1400. Associated signs and symptoms: Pertinent negatives: diarrhea, dizziness, fever, hematuria, vomiting. Severity of pain: in the emergency department the pain is unchanged despite home interventions. Historical: - Allergies: 16:17 No Known Allergies; cm10 - PMHx: 16:17 High Cholesterol; Hypertension; hyperthyroidism; Hypothyroidism; cm10 - Immunization history:: Adult Immunizations up to date. - Infectious Disease History:: Denies. - Social history:: Smoking status: Patient denies any tobacco usage or history of. ROS: 16:20 Constitutional: Negative for body aches, chills, fever, poor PO intake, cp 16:20 Eyes: Negative for injury, pain, redness, and discharge, cp 16:20 ENT: Negative for drainage from ear(s), ear pain, sore throat, difficulty swallowing, difficulty handling secretions, 16:20 Cardiovascular: Negative for chest pain, edema, palpitations, 16:20 Respiratory: Negative for cough, shortness of breath, wheezing, 16:20 Abdomen/GI: Negative for abdominal pain, vomiting, diarrhea, constipation, 16:20 Back: Positive for flank pain, on the right, 16:20 Skin: Negative for rash, 16:20 Neuro: Negative for altered mental status, dizziness, headache, numbness, weakness, 16:20 All other systems are negative, Exam: 16:25 Constitutional: The patient appears in no acute distress, alert, awake, non-toxic, well cp developed, well nourished, uncomfortable, 16:25 Head/Face: Normocephalic, atraumatic. cp 16:25 Eyes: Periorbital structures: appear normal, Conjunctiva: normal, no exudate, no injection, Sclera: no appreciated abnormality, Lids and lashes: appear normal, bilaterally, 16:25 ENT: External ear(s): are unremarkable, Nose: is normal, Mouth: Lips: moist, Oral mucosa: moist, Posterior pharynx: Airway: no evidence of obstruction, patent, 16:25 Neck: ROM/movement: is normal, is supple, without pain, no range of motions limitations, 16:25 Chest/axilla: Inspection: normal, 16:25 Cardiovascular: Rate: normal, Rhythm: regular, Edema: is not appreciated, JVD: is not appreciated, 16:25 Respiratory: the patient does not display signs of respiratory distress, Respirations: normal, no use of accessory muscles, no retractions, labored breathing, is not present, Breath sounds: are clear throughout, no decreased breath sounds, no stridor, no wheezing, 16:25 Abdomen/GI: Inspection: abdomen appears normal, Bowel sounds: active, all quadrants, Palpation: soft, in all quadrants, moderate abdominal tenderness, in the right lower anterior lateral abdomen, mass, is not appreciated, voluntary guarding, 16:25 Back: CVA tenderness, is absent, vertebral tenderness, is not appreciated, 16:25 Musculoskeletal/extremity: ROM: no pain with movement of right hip, 16:25 Neuro: Orientation: to person, place \T\ time. Mentation: is normal, Motor: moves all fours, strength is normal, Vital Signs: 16:16 BP 164 / 74; Pulse 73; Resp 15; Temp 98.3; Pulse Ox 100% on R/A; Weight 81.65 kg; cm10 Height 5 ft. 0 in. ; Pain 10/10; 16:56 BP 175 / 71; Pulse 70; Resp 18; Pulse Ox 99% on R/A; db 17:30 BP 171 / 81; Pulse 78; Resp 18; Pulse Ox 100% on R/A; db 18:30 BP 150 / 55; Pulse 78; Resp 18; Pulse Ox 99% on R/A; db 16:16 Body Mass Index 35.15 (81.65 kg, 152.4 cm) cm10 16:16 Pain Scale: Adult cm10 MDM: 16:10 Medical Screening Exam initiated cp 18:47 Data reviewed: vital signs, nurses notes, lab test result(s), radiologic studies, CT cp scan, and as a result, I will discharge patient. 18:47 Differential diagnosis: nephrolithiasis, pyelonephritis, UTI, shingles. I considered cp the following discharge prescriptions or medication management in the emergency department Medications were administered in the Emergency Department. See MAR. Counseling: I had a detailed discussion with the patient and/or guardian regarding the historical points, exam findings, and any diagnostic results supporting the discharge/admit diagnosis, lab results, radiology results, to return to the emergency department if symptoms worsen or persist or if there are any questions or concerns that arise at home. Response to treatment: the patient's symptoms have markedly improved after treatment, and as a result, I will discharge patient. 07/21 16:11 Order name: Urinalysis W/Microscopic; Complete Time: 17:40 cp 07/21 18:21 Interpretation: Reviewed. cp 07/21 16:31 Order name: CBC with Diff; Complete Time: 17:40 cp 07/21 16:31 Order name: CMP; Complete Time: 17:40 cp 07/21 18:22 Interpretation: Normal except: CL 108; GLUC 118; BUN 26; GFR 58; GLOB 3.9; A/G 0.9. cp 07/21 16:31 Order name: Lipase; Complete Time: 17:40 cp 07/21 16:31 Order name: CT Abd/Pelvis- W/WO Contrast; Complete Time: 18:20 cp 07/21 16:31 Order name: IV Saline Lock; Complete Time: 16:59 cp 07/21 16:31 Order name: Labs collected and sent; Complete Time: 16:59 cp Administered Medications: 17:00 Drug: Ondansetron IVP 4 mg IVP once; over 2 minutes Route: IVP; Site: left antecubital; db 17:01 Drug: Ketorolac IVP 15 mg IVP once Route: IVP; Site: left antecubital; db 19:29 Follow up: Response: No adverse reaction ay 17:03 Not Given (Patient Refused): morphineor iv 4 mg IVP once over 4 mins db 17:11 Drug: NS 0.9% IV 500 ml 500 ml IV at 1 bolus once; to be given as a bolus over 60 db minutes Volume: 500 ml; Route: IV; Rate: 1 bolus; Site: left antecubital; 19:29 Follow up: Response: No adverse reaction; IV Status: Completed infusion; IV Intake: ay 500ml 17:43 Drug: fentaNYL (PF) IVP 25 mcg IVP once Route: IVP; Site: left antecubital; db 19:28 Follow up: Response: No adverse reaction ay 18:15 Drug: fentaNYL (PF) IVP 25 mcg IVP once Route: IVP; Site: left antecubital; db 19:28 Follow up: Response: No adverse reaction ay Disposition Summary: 07/21/24 18:47 Discharge Ordered Notes: Location: Home cp Problem: new cp Symptoms: have improved cp Condition: Stable cp Diagnosis - Right Lower Flank Pain cp Followup: cp - With: Private Physician - When: 2 - 3 days - Reason: Recheck today's complaints Discharge Instructions: - Discharge Summary Sheet cp - Flank Pain, Adult cp Forms: - Medication Reconciliation Form cp - Antibiotic Education cp - Prescription Opioid Use cp - Patient Portal Instructions cp - Leadership Thank You Letter cp Prescriptions: - Celebrex 100 mg Oral Capsule - take 1 tablet ORAL route once daily As needed take with food; 20 capsule; cp Refills: 0, Product Selection Permitted - methocarbamol 500 mg Oral tablet - take 1 tablet ORAL route 3 times per day; 30 tablet; Refills: 0, Product cp Selection Permitted Signatures: Dispatcher [employer] EDMS Sridhar Wei PA PA cp Benton, Danielle, RN RN Yumiko Araujo RN RN cm10 Yoel Caraballo RN Corrections: (The following items were deleted from the chart) 16:31 16:31 Abdomen Pelvis W/Wo Con+CT.RAD.BRZ ordered. EDMS EDMS
[2024-07-21 19:42] VITALS: TEMP 98.3
[2024-07-21 19:56] VITALS: BP 150/55; O2SAT 99
== END 2024-07-21 19:28 | disposition home or self-care (01) ==
LOC: ER 15:39
DX: R10.31 Right lower quadrant pain (principal); M25.551 Pain in right hip
CPT/HCPCS: 96361; 85025; 81001; 36415; 83690; 80053; 74178; 96375; 96374; 99284; Q9967; J3010; J2405; J7040